=== PATIENT | male | born 1960 | race Caucasian/White ===

== ENCOUNTER 2017-02-25 13:07 | Inpatient (IN) | payer OTHER ==
--- NOTE | 2017-02-25 15:13 | PDOC ---
History of Present Illness - General Chief Complaint: Pain Stated Complaint: BACK AND LEG PAIN Time Seen by Provider: 02/25/17 14:42 History Source: Patient - History of Present Illness Timing/Duration: other Severity: severe Past History - Past Medical History Allergies/Adverse Reactions: Allergies Allergy/AdvReac Type Severity Reaction Status Date / Time No Known Allergies Allergy Verified 02/25/17 13:33 Home Medications: Ambulatory Orders Diclofenac Sodium/Misoprostol [Arthrotec EC 75 mg-200 Mcg Tab] 1 each PO BID # 20 tablet. 02/11/12 Docosahexanoic Acid/Epa [Fish Oil Softgel] 1 each PO DAILY 02/11/12 Tizanidine HCl 4 mg PO TID #10 capsule 02/11/12 Oxycodone HCl/Acetaminophen [Percocet 5-325 mg Tablet -] 1 tab PO HS PRN COPD: No Other medical history: NONE - Suicide/Smoking/Psychosocial Hx Smoking Status: No Smoking History: Never smoked Have you smoked in the past 12 months: No Number of Cigarettes Smoked Daily: 0 Hx Alcohol Use: No Drug/Substance Use Hx: No Review of Systems - Review of Systems Constitutional: No: Chills, Fever Musculoskeletal: Yes: Back Pain. No: Muscle Weakness Neurological: Yes: Numbness. No: Tingling *Physical Exam - Vital Signs Last Vital Signs Temp Pulse Resp BP Pulse Ox 97.8 F 105 H 20 155/93 97 02/25/17 13:28 02/25/17 13:28 02/25/17 13:28 02/25/17 13:28 02/25/17 13:28 - Physical Exam General Appearance: Yes: Appropriately Dressed. No: Apparent Distress HEENT: positive: Normal Voice Neck: positive: Supple Respiratory/Chest: negative: Respiratory Distress Musculoskeletal: negative: CVA Tenderness Extremity: positive: Normal Inspection Integumentary: positive: Dry, Warm Neurologic: positive: Fully Oriented, Alert, Normal Mood/Affect, Motor Strength /5 ED Treatment Course - LABORATORY CBC & Chemistry Diagram: 02/25/17 15:45 02/25/17 15:45 - RADIOLOGY Radiology Studies Ordered: Category Date Time Status CHEST X-RAY PORTABLE* [RAD] Stat Radiology 02/25/17 15:04 Ordered Medical Decision Making - Medical Decision Making 02/25/17 15:05 56 -year-old male history of multiple spinal fusions 2/2 job related injury (1 in 2008, 2 in 2014), performed by Dr. Gurmeet Torres of ortho spine, who was associated with [facility] at the time, now here with gradually progressive lower back pain radiating to both lower extremities, R>L, with intermittent numbness to left foot. No lower extremity weakness, saddle anesthesia or bowel or bladder incontinence. Patient states he had a CT myelogram performed a month ago that showed that the interbody fusion at L1-L2 had not consolidated. Patient also had a CT of his thoracic spine last week which showed "bilateral thoracolumbar facet arthropathy, right sided posterior endplate spondylolisthesis at the T10-T11, and the T11-T12 levels with mild age indeterminate compression deformity of the first lumbar vertebral body". Pt has report and discs on his person. Patient states Dr Torres is now affiliated with [facility] and sent patient to ED to be admitted for surgery tomorrow. Patient states he was told he is supposed to have a spinal fusion from T4-S1. Patient well-appearing and ambulatory with no evidence of cauda equina at this time. Will order preop labs and contact Dr. Torres to discuss plan 02/25/17 15:24 02/25/17 16:05 After an hr of paging Dr Torres ([phone]) no call back. Patient has a note on his person written and signed by a Dr Gurmeet Torres, stating that ER should admit patient to his service for the OR tomorrow. 02/25/17 17:41 At this time, still no call back from Dr. Torres despite multiple attempts at paging 02/25/17 17:40 *DC/Admit/Observation/Transfer Diagnosis at time of Disposition: Chronic lower back pain Qualifiers: Back pain laterality: bilateral Sciatica presence: unspecified whether sciatica present Qualified Code(s): M54.5 - Low back pain - Discharge Dispostion Condition at time of disposition: Fair Admit: Yes - Referrals Referrals: Jonas Maurice MD [Primary Care Provider] - - Patient Instructions - Post Discharge Activity
[2017-02-25 16:01] LABS: BASO % 0.9 % (0-2.0); EOS % 5.6 % (0-4.5); HEMATOCRIT 50.3 % (35.4-49); HEMOGLOBIN 16.7 GM/dL (11.7-16.9); LYMPH % 18.2 % (8-40); MCH 29.8 pg (25.7-33.7); MCHC 33.3 g/dl (32.0-35.9); MEAN CELL VOLUME 89.6 fl (80-96); MEAN PLT VOLUME 7.9 fl (7.5-11.1); NEUT % 66.3 % (42.8-82.8); PLATELET COUNT 253 K/MM3 (134-434); RBC 5.61 M/mm3 (4.00-5.60); RDW 13.1 % (11.9-15.9); WHITE BLOOD COUNT 7.2 K/mm3 (4.0-10.0)
[2017-02-25 16:14] LABS: ALBUMIN 3.8 g/dl (3.4-5.0); ALK PHOS 97 U/L (45-117); ANION GAP 7 (8-16); BILIRUBIN,TOTAL 0.7 mg/dL (0.2-1.0); BLOOD UREA NITROGEN 15 mg/dL (7-18); CALCIUM 9.3 mg/dL (8.5-10.1); CHLORIDE 103 mmol/L (98-107); CO2 30 mmol/L (21-32); CREATININE 1.1 mg/dL (0.7-1.3); GLUCOSE,RANDOM 84 mg/dL (74-106); POTASSIUM 4.3 mmol/L (3.5-5.1); SGOT/AST 20 U/L (15-37); SGPT/ALT 35 U/L (12-78); SODIUM 140 mmol/L (136-145)
[2017-02-25] MEDS ORDERED: morphine CARPU-JECT 4 MG/1 ML DISP.SYRIN IVPUSH ONE (16:44)
[2017-02-25] MEDS ORDERED: morphine SULFATE 4 MG/ML VIAL ONE (17:04)
[2017-02-25] MEDS: LACTATED RINGERS SOLUTION 1,000 ML IV SCH (17:30)
[2017-02-25 18:28] LABS: PROTHROMBIN TIME (PATIENT) 11.3 SEC (9.98-11.88)
[2017-02-25 19:45] LABS: URINE APPEARANCE CLEAR; URINE BILIRUBIN NEGATIVE (NEGATIVE); URINE BLOOD NEGATIVE (NEGATIVE); URINE COLOR YELLOW; URINE GLUCOSE (UA) NEGATIVE (NEGATIVE); URINE KETONE NEGATIVE (NEGATIVE); URINE LEUK ESTERASE NEGATIVE (NEGATIVE); URINE NITRITE NEGATIVE (NEGATIVE); URINE PROTEIN NEGATIVE (NEGATIVE); URINE UROBILINOGEN NEGATIVE mg/dL (0.2-1.0)
[2017-02-25] MEDS ORDERED: diazePAM 5 MG TABLET ONE (19:58)
--- NOTE | 2017-02-26 00:15 | PN ---
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 -Pre-op for first case Sunday AM (02/26/2017): Removal of lumbar spine hardware , inspection of fusion mass, possible revision decompression, and extension of posterior instrumented spinal fusion. -Admit to medicine/hospitalist service; f/u pre-op medical clearance/risk stratification. -NPO, IVF after 12AM 02/26/2017. -f/u pre-op labs & studies: CBC, Chemistry, PT, PTT, INR, Type & Screen, UA, CXR , EKG. -Will obtain surgical consent pre-op.
[2017-02-26] MEDS ORDERED: morphine CARPU-JECT 2 MG/1 ML DISP.SYRIN IVPUSH ONE (03:43)
[2017-02-26] MEDS ORDERED: morphine CARPU-JECT 10 MG/1 ML DISP.SYRIN ONE (03:47)
--- NOTE | 2017-02-26 04:01 | PDOC ---
*Physical Exam - Vital Signs Last Vital Signs Temp Pulse Resp BP Pulse Ox 97.5 F L 68 18 133/89 95 02/26/17 03:41 02/26/17 03:41 02/26/17 03:41 02/26/17 03:41 02/26/17 03:41 ED Treatment Course - LABORATORY CBC & Chemistry Diagram: 02/25/17 15:45 02/25/17 15:45 - ADDITIONAL ORDERS Additional order review: Laboratory Results 02/25/17 02/25/17 02/25/17 15:45 15:45 15:45 PT with INR 11.30 INR 1.00 Sodium 140 Potassium 4.3 Chloride 103 Carbon Dioxide 30 Anion Gap 7 L BUN 15 Creatinine 1.1 Creat Clearance w eGFR > 60 Random Glucose 84 Calcium 9.3 Total Bilirubin 0.7 AST 20 ALT 35 Alkaline Phosphatase 97 Total Protein 7.0 Albumin 3.8 Blood Type O NEGATIVE Antibody Screen Negative 02/25/17 15:45 RBC 5.61 H MCV 89.6 MCHC 33.3 RDW 13.1 MPV 7.9 Neutrophils % 66.3 Lymphocytes % 18.2 Monocytes % 9.0 Eosinophils % 5.6 H Basophils % 0.9 - Medications Given in the ED: ED Medications Discontinued Medications Generic Name Dose Route Start Last Admin Trade Name Freq PRN Reason Stop Dose Admin Morphine Sulfate 4 mg 02/25/17 16:44 02/25/17 16:52 Morphine Injection - IVPUSH 02/25/17 16:45 4 mg ONCE ONE Administration Morphine Sulfate 2 mg 02/26/17 03:43 02/26/17 03:53 Morphine Injection - IVPUSH 02/26/17 03:44 2 mg ONCE ONE Administration Medical Decision Making - Medical Decision Making 02/26/17 04:07 Pt erroneously admitted to the surgeon; I spoke to hospitalist who will admit the patient to an observation med surg bed. *DC/Admit/Observation/Transfer Diagnosis at time of Disposition: Chronic lower back pain Qualifiers: Back pain laterality: bilateral Sciatica presence: unspecified whether sciatica present Qualified Code(s): M54.5 - Low back pain - Discharge Dispostion Condition at time of disposition: Fair Admit: Yes - Referrals - Patient Instructions - Post Discharge Activity
--- NOTE | 2017-02-26 06:44 | HP ---
CHIEF COMPLAINT: Chronic back pain PCP: Dr Maurice HISTORY OF PRESENT ILLNESS: 56 year old male sent by Dr Torres to the ED for elective spinal fusion surgery . As per ED physician , Hospitalist service is consulted for preop clearance since patient is scheduled for surgery in AM Patient c/o chronic lower/ mid back pain , 08/19 , constant, exacerbated by movement . Recent Travel: NO PAST MEDICAL HISTORY: BPH DJD spine PAST SURGICAL HISTORY: L1 S1 fusion x 2 L3 S1 fusion R rotator cuff tear repair Social History: Smoking: quit many ears ago Alcohol: denies Drugs: denies Family History: Lung cancer both parents Allergies No Known Allergies Allergy (Verified 02/25/17 13:33) DENIES HOME MEDICATIONS: Home Medications Medication Instructions Recorded Diclofenac Sodium/Misoprostol 1 each PO BID #20 tablet. 02/11/12 [Arthrotec EC 75 mg-200 Mcg Tab] Docosahexanoic Acid/Epa [Fish Oil 1 each PO DAILY 02/11/12 Softgel] Tizanidine HCl 4 mg PO TID #10 capsule 02/11/12 Oxycodone HCl/Acetaminophen 1 tab PO HS PRN 08/25/13 [Percocet 5-325 mg Tablet -] Cialis Testosterone injections Flomax Finesteride REVIEW OF SYSTEMS CONSTITUTIONAL: Absent: fever, chills, diaphoresis, generalized weakness, malaise, loss of appetite, weight change HEENT: Absent: rhinorrhea, nasal congestion, throat pain, throat swelling, difficulty swallowing, mouth swelling, ear pain, eye pain, visual changes CARDIOVASCULAR: Absent: chest pain, syncope, palpitations, irregular heart rate, lightheadedness , peripheral edema RESPIRATORY: Absent: cough, shortness of breath, dyspnea with exertion, orthopnea, wheezing, stridor, hemoptysis GASTROINTESTINAL: Absent: abdominal pain, abdominal distension, nausea, vomiting, diarrhea, constipation, melena, hematochezia GENITOURINARY: Absent: dysuria, frequency, urgency, hesitancy, hematuria, flank pain, genital pain MUSCULOSKELETAL: as mentioned in HPI SKIN: Absent: rash, itching, pallor HEMATOLOGIC/IMMUNOLOGIC: Absent: easy bleeding, easy bruising, lymphadenopathy, frequent infections ENDOCRINE: Absent: unexplained weight gain, unexplained weight loss, heat intolerance, cold intolerance NEUROLOGIC: Absent: headache, focal weakness or paresthesias, dizziness, unsteady gait, seizure, mental status changes, bladder or bowel incontinence PSYCHIATRIC: Absent: anxiety, depression, suicidal or homicidal ideation, hallucinations. PHYSICAL EXAMINATION Vital Signs - 24 hr 02/25/17 02/25/17 02/26/17 13:28 17:45 03:41 Temperature 97.8 F 97.7 F 97.5 F L Pulse Rate 105 H Pulse Rate [ 78 68 Left Apical] Respiratory 20 18 18 Rate Blood Pressure 155/93 Blood Pressure 131/82 133/89 [Left Arm] O2 Sat by Pulse 97 96 95 Oximetry (%) GENERAL: Awake, alert, and fully oriented, in no acute distress. HEAD: Normal with no signs of trauma. EYES: Pupils equal, round and reactive to light, extraocular movements intact, sclera anicteric, conjunctiva clear. No lid lag. EARS, NOSE, THROAT: Ears normal, nares patent, oropharynx clear without exudates. Moist mucous membranes. NECK: Normal range of motion, supple without lymphadenopathy, JVD, or masses. LUNGS: Breath sounds equal, clear to auscultation bilaterally. No wheezes, and no crackles. No accessory muscle use. HEART: Regular rate and rhythm, normal S1 and S2 without murmur, rub or gallop. ABDOMEN: Soft, nontender, not distended, normoactive bowel sounds, no guarding, no rebound, no masses. No hepatomegaly or splenomegaly. MUSCULOSKELETAL: Normal range of motion at all joints. No bony deformities or tenderness. No CVA tenderness. UPPER EXTREMITIES: 2+ pulses, warm, well-perfused. No cyanosis. No clubbing. No peripheral edema. LOWER EXTREMITIES: 2+ pulses, warm, well-perfused. No calf tenderness. No peripheral edema. NEUROLOGICAL: Cranial nerves II-XII intact. Normal speech. Normal gait. PSYCHIATRIC: Cooperative. Good eye contact. Appropriate mood and affect. SKIN: Warm, dry, normal turgor, no rashes or lesions noted, normal capillary refill. Laboratory Results - last 24 hr 02/25/17 02/25/17 02/25/17 15:45 15:45 15:45 WBC 7.2 RBC 5.61 H Hgb 16.7 Hct 50.3 H MCV 89.6 MCH 29.8 MCHC 33.3 RDW 13.1 Plt Count 253 MPV 7.9 Neutrophils % 66.3 Lymphocytes % 18.2 Monocytes % 9.0 Eosinophils % 5.6 H Basophils % 0.9 PT with INR 11.30 INR 1.00 Sodium 140 Potassium 4.3 Chloride 103 Carbon Dioxide 30 Anion Gap 7 L BUN 15 Creatinine 1.1 Creat Clearance w eGFR > 60 Random Glucose 84 Calcium 9.3 Total Bilirubin 0.7 AST 20 ALT 35 Alkaline Phosphatase 97 Total Protein 7.0 Albumin 3.8 Urine Color Urine Appearance Urine pH Ur Specific Mclaughlin Urine Protein Urine Glucose (UA) Urine Ketones Urine Blood Urine Nitrite Urine Bilirubin Urine Urobilinogen Blood Type Antibody Screen 02/25/17 02/25/17 15:45 18:50 WBC RBC Hgb Hct MCV MCH MCHC RDW Plt Count MPV Neutrophils % Lymphocytes % Monocytes % Eosinophils % Basophils % PT with INR INR Sodium Potassium Chloride Carbon Dioxide Anion Gap BUN Creatinine Creat Clearance w eGFR Random Glucose Calcium Total Bilirubin AST ALT Alkaline Phosphatase Total Protein Albumin Urine Color Yellow Urine Appearance Clear Urine pH 5.0 Ur Specific Mclaughlin 1.019 Urine Protein Negative Urine Glucose (UA) Negative Urine Ketones Negative Urine Blood Negative Urine Nitrite Negative Urine Bilirubin Negative Urine Urobilinogen Negative Blood Type O NEGATIVE Antibody Screen Negative EKG - NSR , no acute ST/T changes CXR - NAPD ASSESSMENT/PLAN: 56 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 Medical clearance requested . Patient is medically optimized for planned procedure. Consider Observation postoperatively if needed for pain control. Soni PRN due to history of BPH Continue home medications upon discharge . DVT PPX with SCD Visit type - Emergency Visit Emergency Visit: Yes ED Registration Date: 02/25/17 Care time: The patient presented to the Emergency Department on the above date and was hospitalized for further evaluation of their emergent condition. - New Patient This patient is new to me today: Yes Date on this admission: 02/26/17 - Critical Care Critical Care patient: No
[2017-02-26] MEDS ORDERED: LACTATED RINGERS SOLUTION 1,000 ML IV SCH ×4 (06:45→17:37)
[2017-02-26] MEDS ORDERED: fentaNYL CITRATE 250 MCG/5 ML VIAL ONE ×4 (08:02→11:32)
[2017-02-26] MEDS ORDERED: LIDOCAINE HCL/PF 2% SDV 5ML VIAL ONE (08:02)
[2017-02-26] MEDS ORDERED: PROPOFOL 20 ML ONE ×17 (08:03→13:35)
[2017-02-26] MEDS ORDERED: MIDAZOLAM HCL 2 MG/2 ML SINGLE DOSE VIAL ONE ×5 (08:03)
[2017-02-26] MEDS ORDERED: SUCCINYLCHOLINE CHLORIDE 200 MG/10 ML VIAL ONE (08:03)
[2017-02-26] MEDS ORDERED: HEPARIN NA (PORCINE) 5,000 UNITS/ML 1ML VIAL ONE (08:14)
[2017-02-26] MEDS ORDERED: THROMBIN (BOVINE) 5,000 UNIT VIAL TP ONE (08:15)
[2017-02-26] MEDS ORDERED: BUPIVACAINE HCL/PF 0.5% (5MG/ML) 10 ML VIAL ONE (08:15)
[2017-02-26] MEDS ORDERED: SCOPOLAMINE HYDROBROMIDE 1 PATCH PATCH.TD72 ONE (08:17)
[2017-02-26] MEDS ORDERED: DEXAMETHASONE SOD PHOSPHATE 4 MG/1 ML VIAL ONE ×2 (08:55→12:18)
[2017-02-26] MEDS ORDERED: ceFAZolin SODIUM 1 GM VIAL ONE ×4 (08:55→19:40)
[2017-02-26] MEDS ORDERED: ONDANSETRON 4 MG/2 ML VIAL ONE ×2 (08:55→15:00)
[2017-02-26] MEDS ORDERED: VANCOMYCIN 1,000 MG VIAL (RESTRICTED TO ID ONLY) ONE ×2 (09:32→14:39)
[2017-02-26] MEDS ORDERED: ceFAZolin SODIUM 1 GM VIAL IVPB ONE (09:32)
[2017-02-26] MEDS ORDERED: VECURONIUM BROMIDE 10 MG VIAL ONE (09:32)
[2017-02-26] MEDS ORDERED: VANCOMYCIN 1,000 MG VIAL (RESTRICTED TO ID ONLY) IVPB ONE (09:32)
[2017-02-26] MEDS ORDERED: TRANEXAMIC ACID 1000 MG/10 ML VIAL ONE ×2 (09:35→10:24)
[2017-02-26] MEDS ORDERED: PROMETHAZINE HCL 25 MG/1 ML VIAL IVPUSH PRN ×2 (11:29→17:37)
[2017-02-26] MEDS ORDERED: HYDROmorphone HCL CARPU-JECT 1 MG/1 ML DISP.SYRIN IVPUSH PRN ×2 (11:29→17:37)
[2017-02-26] MEDS ORDERED: ONDANSETRON 4 MG/2 ML VIAL IVPUSH PRN ×4 (11:29→17:37)
[2017-02-26] MEDS ORDERED: HYDROmorphone *PCA* 10MG/50ML DISP.SYRIN PCA SCH (11:30)
[2017-02-26] MEDS ORDERED: ACETAMINOPHEN INJECTION 100 ML IVPB ONE (14:18)
--- NOTE | 2017-02-26 16:16 | OP ---
Operative Note - Note: Operative Date: 02/26/17 Pre-Operative Diagnosis: 1. Progressive lower extremity neurological decline. 2. Sagittal thoracolumbar decompensation Operation: 1. Removal of hardware L2-S1. 2. Laminectomy T12, L1. 3. Revision laminectomy L2. 4. Posterior instrumented spinal fusion T10-S1. 5. Iliac crest bone marrow harvest Post-Operative Diagnosis: Same as Pre-op Surgeon: Gurmeet Torres Temperer: Chalo Torres Anesthesia: General Specimens Removed: Old hardware Estimated Blood Loss (mls): 1,500 Drains & Tubes with Location: 1 x superficial Anatoliy drain (10F) Blood Volume Replaced (mls): 625 (cellsaver) Fluid Volume Replaced (mls): 3,000 Operative Report Dictated: Yes
--- NOTE | 2017-02-26 16:17 | PN ---
Progress Note (short form) - Note Progress Note: 56M s/p removal of hardware L2-S1, laminectomy T12 & L1, revision laminectomy L2 , posterior instrumented spinal fusion T10-S1 POD #0. -Admit to ICU post-op. -Admit to medical hospitalist service. -NPO until flatus. -IVF. -Pain control (Dilaudid or Morphine GYRO COMPASS TESTER + breakthrough PRN; Toradol 30mg IV q6h PRN x 4 MAX total doses). -Post-op abx (24 hrs total coverage). -Mechanical DVT PPx. only (LEVON's & SCD's). -Incentive spirometry/aggressive pulmonary toilet. -PT/OT/Rehab, OOB. -WBAT B/L LE. -No HOB restrictions. -Soni catheter (OK to d/c when patient is ambulatory). -Monitor drain output. -Will follow.
[2017-02-26] MEDS ORDERED: diazePAM CARPU-JECT 10 MG/2 ML DISP.SYRIN IVPUSH PRN ×2 (16:22→17:37)
[2017-02-26] MEDS ORDERED: KETOROLAC TROMETHAMINE 30 MG/1 ML VIAL IVPUSH PRN (16:22)
[2017-02-26] MEDS ORDERED: HYDROmorphone *PCA* 10MG/50ML DISP.SYRIN PCA ONE (16:42)
[2017-02-26] MEDS: HYDROmorphone *PCA* 10MG/50ML DISP.SYRIN PCA SCH (17:00)
[2017-02-26] MEDS: KETOROLAC TROMETHAMINE 30 MG/1 ML VIAL IVPUSH PRN (17:45)
[2017-02-26] MEDS ORDERED: HYDROmorphone HCL CARPU-JECT 2 MG/1 ML DISP.SYRIN ONE ×2 (17:56→23:08)
[2017-02-26] MEDS ORDERED: diazePAM 5 MG TABLET PO PRN (17:57)
[2017-02-26] MEDS ORDERED: diazePAM CARPU-JECT 10 MG/2 ML DISP.SYRIN IVPUSH ONE (17:57)
[2017-02-26] MEDS ORDERED: ACETAMINOPHEN 1000 MG/100 ML VIAL (NON FORMULARY) IVPB SCH (18:00)
[2017-02-26] MEDS ORDERED: ceFAZolin 2 GRAM PREMIX BAG IVPB SCH (18:00)
[2017-02-26] MEDS ORDERED: CHLORHEXIDINE GLUCONATE 4% CLEANSER FOR DECOLONIZATION TP SCH (22:00)
--- NOTE | 2017-02-26 22:01 | CONSULT ---
Consult Consult Specialty:: Pulmonary Critical care Reason for Consultation:: post/op observation - History of Present Illness History of Present Illness: 56 yo male with h/o multiple spinal fusions 2/2 job related injury presented with progressively worsening lower back thurman radiating to both lower extremities and elective surgery. Now s/p removal of hardware L2-S1, laminectomy T12 & L1, revision laminectomy L2, posterior instrumented spinal fusion T10-S1. Admitted to ICU for post op observation and management. Current Medications Acetaminophen (Ofirmev Injection -) 1,000 mg IVPB Q8H-IV [facility] Stop: 02/27/17 10:01 Chlorhexidine Gluconate (Hibiclens For Decolonization -) 1 applic TP HS [facility] Diazepam (Valium -) 5 mg PO Q8H PRN PRN Reason: BACK PAIN Hydromorphone HCl (Dilaudid Injection -) 1 mg IVPUSH [id number] PRN PRN Reason: PAIN Last Admin: 02/26/17 18:00 Dose: 1 mg Hydromorphone HCl (Dilaudid Urgent Care Physician Assistant -) 0 mg STRETCH MACHINE OPERATOR STRETCH MACHINE OPERATOR [facility] PRN Reason: Protocol Stop: 03/01/17 11:30 Last Admin: 02/26/17 17:00 Dose: 10 mg Cefazolin Sodium/Dextrose (Ancef 2 Gm Premixed Ivpb -) 2 gm in 50 mls @ 100 mls /hr IVPB Q8H-IV [facility] Stop: 02/27/17 10:29 Lactated Ringer's (Lactated Ringers Solution) 1,000 mls @ 125 mls/hr IV ASDIR [facility] Last Admin: 02/25/17 17:30 Dose: 125 mls/hr Ketorolac Tromethamine (Toradol Injection -) 30 mg IVPUSH Q6H PRN PRN Reason: PAIN Stop: 03/03/17 16:21 Last Admin: 02/26/17 17:45 Dose: 30 mg Mupirocin (Bactroban Ointment (For Decolonization) -) 1 applic NS BID [facility] Stop: 03/03/17 21:59 Ondansetron HCl (Zofran Injection) 4 mg IVPUSH Q6H PRN PRN Reason: NAUSEA AND/OR VOMITING Promethazine HCl (Phenergan Injection -) 12.5 mg IVPUSH Q6H PRN PRN Reason: NAUSEA-FOR RESCUE AFTER 15 MIN Stop: 02/27/17 11:28 - Alcohol/Substance Use Hx Alcohol Use: No - Smoking History Smoking history: Never smoked Have you smoked in the past 12 months: No Aproximately how many cigarettes per day: 0 Home Medications - Allergies Allergies/Adverse Reactions: Allergies Allergy/AdvReac Type Severity Reaction Status Date / Time No Known Allergies Allergy Verified 02/25/17 13:33 - Home Medications Home Medications: Ambulatory Orders Diclofenac Sodium/Misoprostol [Arthrotec EC 75 mg-200 Mcg Tab] 1 each PO BID # 20 tablet. 02/11/12 Docosahexanoic Acid/Epa [Fish Oil Softgel] 1 each PO DAILY 02/11/12 Tizanidine HCl 4 mg PO TID #10 capsule 02/11/12 Oxycodone HCl/Acetaminophen [Percocet 5-325 mg Tablet -] 1 tab PO HS PRN Physical Exam Vital Signs: Vital Signs Temperature 97.8 F 02/26/17 20:15 Pulse Rate 98 H 02/26/17 20:15 Respiratory Rate 18 02/26/17 20:15 Blood Pressure 149/78 02/26/17 20:15 O2 Sat by Pulse Oximetry (%) 96 02/26/17 20:15 Constitutional: Yes: Well Nourished, No Distress Eyes: Yes: WNL Cardiovascular: Yes: Regular Rate and Rhythm Respiratory: Yes: CTA Bilaterally Gastrointestinal: Yes: Soft, Hypoactive Bowel Sounds Musculoskeletal: Yes: Other (able to move all four ext) Edema: No Peripheral Pulses WNL: Yes Labs: CBC, BMP 02/25/17 15:45 02/25/17 15:45 Assessment/Plan POD #0 s/p removal of hardware L2-S1, laminectomy T12 & L1, revision laminectomy L2, posterior instrumented spinal fusion T10-S1 -pain management -antiemetics prn -NPO -fluids while NPO -monitor drain output -abx given in OR -IS -MIKEY David Critical care time: 35 min
[2017-02-26] MEDS: CEFAZOLIN 2 GM/D5W 2 GM/50 ML ML IVPB SCH (22:16)
[2017-02-26] MEDS: ACETAMINOPHEN 1000 MG/100 ML VIAL (NON FORMULARY) IVPB SCH (22:16)
[2017-02-26] MEDS ORDERED: HYDROmorphone HCL CARPU-JECT 2 MG/1 ML DISP.SYRIN IVPUSH PRN ×2 (22:35→22:36)
--- NOTE | 2017-02-27 01:33 | EKG ---
Test Reason : Blood Pressure : / mmHG Vent. Rate : 071 BPM Atrial Rate : 071 BPM P-R Int : 138 ms QRS Dur : 094 ms QT Int : 352 ms P-R-T Axes : 058 040 018 degrees QTc Int : 382 ms NORMAL SINUS RHYTHM NORMAL ECG NO PREVIOUS ECGS AVAILABLE Confirmed by LINDEN DESOUZA MD ([id number]) on 02/27/2017 1:32:59 AM Referred By: Confirmed By:LINDEN DESOUZA MD
[2017-02-27] MEDS: MUPIROCIN 2% TOPICAL OINTMENT FOR DECOLONIZATION NS SCH ×2 (01:34→09:47)
[2017-02-27] MEDS: ACETAMINOPHEN 1000 MG/100 ML VIAL (NON FORMULARY) IVPB SCH ×2 (01:34→09:48)
[2017-02-27] MEDS: CEFAZOLIN 2 GM/D5W 2 GM/50 ML ML IVPB SCH ×2 (02:07→09:46)
[2017-02-27] MEDS ORDERED: HYDROmorphone *PCA* 10MG/50ML DISP.SYRIN PCA ONE ×3 (02:42→19:26)
[2017-02-27] MEDS: HYDROmorphone *PCA* 10MG/50ML DISP.SYRIN PCA SCH ×4 (02:47→22:16)
[2017-02-27] MEDS: KETOROLAC TROMETHAMINE 30 MG/1 ML VIAL IVPUSH PRN (03:42)
[2017-02-27 07:19] LABS: HEMATOCRIT 40.3 % (35.4-49); HEMOGLOBIN 13.5 GM/dL (11.7-16.9); MCH 29.9 pg (25.7-33.7); MCHC 33.6 g/dl (32.0-35.9); MEAN CELL VOLUME 88.8 fl (80-96); MEAN PLT VOLUME 7.7 fl (7.5-11.1); PLATELET COUNT 236 K/MM3 (134-434); RBC 4.54 M/mm3 (4.00-5.60); WHITE BLOOD COUNT 14.7 K/mm3 (4.0-10.0)
[2017-02-27 07:51] LABS: ANION GAP 7 (8-16); BLOOD UREA NITROGEN 19 mg/dL (7-18); CALCIUM 7.9 mg/dL (8.5-10.1); CHLORIDE 104 mmol/L (98-107); CO2 28 mmol/L (21-32); GLUCOSE,RANDOM 99 mg/dL (74-106); POTASSIUM 4.2 mmol/L (3.5-5.1); SODIUM 139 mmol/L (136-145)
--- NOTE | 2017-02-27 08:09 | PN ---
Physical Exam: SUBJECTIVE: Patient seen and examined in the ICU. States he has pain 10/10, but has not yet pushed the TEA TREE FARMER. Once he pressed the TEA TREE FARMER, he expressed relief of his pain. OBJECTIVE: Pt is receiving Dilaudid 0.5mg q10 TEA TREE FARMER, encouraged pt to use same + flatus, + bowel sounds, non distended abdomen, full liquid for breakfast, then regular if tolerates Denies nausea or vomiting Appears comfortable Encouraged to get OOB to chair once pain is controlled Vital Signs Period Temp Pulse Resp BP Sys/Cortez Pulse Ox Last 24 Hr 97.7 F-98.6 F 74-122 10-22 107-161/61-102 92-99 GENERAL: The patient is awake, alert, and fully oriented, in no acute distress. HEAD: Normal with no signs of trauma. EYES: PERRL, extraocular movements intact, sclera anicteric, conjunctiva clear. No ptosis. ENT: Ears normal, nares patent, oropharynx clear without exudates, moist mucous membranes. NECK: Trachea midline, full range of motion, supple. LUNGS: clear lung sounds anteriorly, no wheezing HEART: Regular rate and rhythm, S1, S2 without murmur, rub or gallop. ABDOMEN: Soft, nontender, nondistended, normoactive bowel sounds, + passing gas EXTREMITIES: no edema. NEUROLOGICAL: Normal speech, gait not observed. PSYCH: Normal mood, normal affect. SKIN: Warm, dry, normal turgor, no rashes or lesions noted Laboratory Results - last 24 hr 02/25/17 02/27/17 18:50 06:00 WBC 14.7 H D RBC 4.54 Hgb 13.5 D Hct 40.3 D MCV 88.8 MCH 29.9 MCHC 33.6 RDW 13.0 Plt Count 236 MPV 7.7 Ur Leukocyte Esterase Negative Active Medications Generic Name Dose Route Start Last Admin Trade Name Freq PRN Reason Stop Dose Admin Acetaminophen 1,000 mg 02/26/17 18:00 02/27/17 01:34 Ofirmev Injection - IVPB 02/27/17 10:01 1,000 mg Q8H-IV [facility] Administration Chlorhexidine Gluconate 1 applic 02/26/17 22:00 02/27/17 02:50 Hibiclens For Decolonization - TP 1 applic HS [facility] Administration Diazepam 5 mg 02/26/17 17:57 Valium - PO Q8H PRN BACK PAIN Hydromorphone HCl 0 mg 02/26/17 17:37 02/27/17 02:47 Dilaudid Antisqueak Chalker - TEA TREE FARMER 03/01/17 11:30 10 mg TEA TREE FARMER LEAH Administration Protocol Hydromorphone HCl 1 mg 02/26/17 22:35 02/26/17 23:16 Dilaudid Injection - IVPUSH 1 mg [id number] PRN Administration PAIN Hydromorphone HCl 1 mg 02/26/17 22:36 Dilaudid Injection - IVPUSH 02/27/17 22:35 Q4H PRN PAIN Cefazolin Sodium/Dextrose 2 gm in 50 mls @ 100 mls/hr 02/26/17 18:00 02:07 Ancef 2 Gm Premixed Ivpb - IVPB 02/27/17 10:29 100 mls/hr Q8H-IV [facility] Administration Lactated Ringer's 1,000 mls @ 125 mls/hr 02/26/17 17:37 02/25/17 17:30 Lactated Ringers Solution IV 125 mls/hr ASDIR [facility] Administration Ketorolac Tromethamine 30 mg 02/26/17 17:37 02/27/17 03:42 Toradol Injection - IVPUSH 03/03/17 16:21 30 mg Q6H PRN Administration PAIN Mupirocin 1 applic 02/26/17 22:00 02/27/17 01:34 Bactroban Ointment (For Decolonization) - NS 03/03/17 21:59 1 applic BID [facility] Administration Ondansetron HCl 4 mg 02/26/17 17:37 Zofran Injection IVPUSH Q6H PRN NAUSEA AND/OR VOMITING Promethazine HCl 12.5 mg 02/26/17 17:37 Phenergan Injection - IVPUSH 02/27/17 11:28 Q6H PRN NAUSEA-FOR RESCUE AFTER 15 MIN ASSESSMENT/PLAN: Patient is a 56 year old male who has a past medical history of BPH and progressive back pain to bilateral lower extremities. He is s/p elective surgery on 02/26/2017 s/p removal of hardware L2-S1, laminectomy T12 & L1, revision laminectomy L2, posterior instrumented spinal fusion T10-S1. Post OP Day #1, in ICU post op. Skeletal S/p elective back surgery on 02/26/19 In ICU post Op + flatus, started on full liquid diet, advance to regular if tolerates Continue IVF until tolerating diet Pain controlled with TEA TREE FARMER dilaudid, pt encouraged to use, Toradol prn Encourage ambulation when pain is controlled Soni to be discontinued when fully ambulatory Hematology: Leukocytosis @. 14.7 Afebrile, vitals stable No signs of infection On Ancef 2gm post op F.E.N. Fluids: LR @ 125cc/hr Electrolytes: within normal limits Nutrition: full liquids, advance to regular Prophylaxis: DVT:SCDs Disposition: full code. Visit type - Emergency Visit Emergency Visit: Yes ED Registration Date: 02/25/17 Care time: The patient presented to the Emergency Department on the above date and was hospitalized for further evaluation of their emergent condition. - New Patient This patient is new to me today: Yes Date on this admission: 02/27/17 - Critical Care Critical Care patient: Yes Total Critical Care Time (in minutes): 45 Critical Care Statement: The care of this patient involved high complexity decision making to prevent further life threatening deterioration of the patient 's condition and/or to evaluate & treat vital organ system(s) failure or risk of failure.
--- NOTE | 2017-02-27 08:44 | OP ---
DATE OF OPERATION: 02/26/2017 SURGEON: Gurmeet Torres MD VICE PRESIDENT COMPLIANCE: Chalo Torres MD PREOPERATIVE DIAGNOSES: Thoracolumbar stenosis with myelopathy and radiculopathy and associated increasing kyphosis and segmental instability. POSTOPERATIVE DIAGNOSES: Thoracolumbar stenosis with myelopathy and radiculopathy and associated increasing kyphosis and segmental instability. OPERATION PERFORMED: 1. Removal of hardware. 2. Inspection of fusion mass. 3. Laminectomy, T12, L1, L2 with associated undercutting facetectomy. 4. Madden-Faustin osteotomy, L1-2. 5. Pedicle screw instrumentation, T10 to S1. 6. Posterolateral arthrodesis, T10 to S1. 7. Autologous bone grafting and bone mineral aspirate concentrate. 8. Complex wound closure, 30 cm. 9. Use of biplane fluoroscopy and intraoperative neuromonitoring. ANTIBIOTICS GIVEN: Kefzol 2 g, vancomycin 1 g preoperative; Kefzol 1 g given at the time of the instrumentation. Copious washout throughout the procedure. OPERATION DETAILS: With the patient brought to the operating room, timeout was called. Imaging was available for intraoperative evaluation. The patient was placed prone on 2 gel rolls. All relevant bony prominences were padded. Eyes were attended to by the anesthesia team. Patient was catheterized. The skin was prepped with Betadine scrub, washed off with alcohol, DuraPrep applied, and a window drape applied. With the patient in this position, an incision was made through the old, original incision extended proximally. The dissection was taken down through the fascia. The first cranial spinous process that was readily palpable was dissected first for attention to appropriate depth and level. The dissection was then taken obliquely through the soft tissue out to the original hardware which was present from L2 down to S1. The hardware was appropriately removed after complete freeing of the hardware of fibrous and bony elements. Once all hardware was removed, new hardware was replaced in situ with a different instrumentation system (from DePuy to Precision). A laminectomy at T12 was performed. This was virgin tissue, had not been operated on prior to this. Once the dura was exposed at this level, the dura was traced distally right down to the level of L1-L2, in fact, beyond the level of the pedicles of L2. We used Kerrison upcuts, Leksell rongeurs, as well as osteotomes to implode the lateral surface of the vertebral canal inwards and deliver bone outwards, keeping intact the principle of operating in an operated field with scarring from virgin tissue to the operated scar tissue. This facilitated complete freeing of the dura with a wide decompression being performed and no dural injury at all. Once this had been performed, we extended the dissection laterally to complete a Madden-Faustin osteotomy at L1-L2. The pedicles of T10 to the remaining part of the spine were identified using anatomical guidelines combined with lateral fluoroscopic x-ray which facilitated screw placement in as firm a bone bed as possible; that is, under the endplates. Screws were tested and found to be completely safe within the parameters of neuromonitoring features. The lowest was the T11 screw on the right which measured 9 mA. X-rays revealed excellent positioning of all screws. The rods were appropriately contoured and then fixed into position with the appropriate instrumentation for persuasion of the instrumentation as the proximal ends of the rods were left straight to facilitate encouragement of extension of the spine in keeping with the modular elasticity of the titanium material. Two crosslinks applied. Solid fixation achieved. The bone grafting was completed by placing a posterolateral arthrodesis into the bone bed intersected previously, which was a dissection right down to the tips of the spinous processes in the lumbar spine and laterally out to the tip of the spinous processes in the thoracic spine. The wounds were thoroughly lavaged throughout the procedure. The retractors were released readily every 15 minutes. At the time of closure, necrotic damaged muscle proximally was removed. This was a small amount of muscle. The wounds were closed in a complex wound closure manner with fat and muscle 1 Vicryl, fascia 1 Vicryl, subcutaneous 1 and 2-0 Vicryl, and then the skin with 3-0 Monocryl. DRAINAGE: Superficial 10-Turkish Anatoliy drain utilized. Vancomycin was placed in the subfascial soft tissue prior to closure. OVERALL COMMENT: Operation was difficult, i.e. the dural element of the dissection, the election of T10 to S1 was assessed as sufficing to maintain this gentleman's vertical sagittal axis. He is a young man, and we elected to retain mobility of his remaining proximal spinal elements. Albeit, it is readily noted that he has elements of diffuse idiopathic skeletal hypoplasia which is causing a bony ankyloses picture in his thoracic spine as it is. The fusion was taken right up to this level. No complications, operation went well. MD ASHWIN Lozoya/[id number]
[2017-02-27] MEDS ORDERED: diphenhydrAMINE HCL 25 MG CAPSULE (FP) PO ONE (10:33)
[2017-02-27] MEDS ORDERED: oxyCODONE HCL 5 MG TABLET PO PRN (12:49)
--- NOTE | 2017-02-27 13:29 | PN ---
Teaching Attending Note Name of Resident: Jude Thompson ATTENDING PHYSICIAN STATEMENT I saw and evaluated the patient. I reviewed the resident's note and discussed the case with the resident. I agree with the resident's findings and plan as documented. SUBJECTIVE: Pt seen and examined in the ICU. States pain not controlled with CIRCUIT DESIGN ENGINEER. No shortness of breath or chest pain. No fevers or chills. OBJECTIVE: Last Vital Signs Temp Pulse Resp BP Pulse Ox 98.2 F 104 H 18 112/58 96 02/27/17 10:00 02/27/17 12:02 02/27/17 12:02 02/27/17 12:02 02/26/17 21:00 Intake & Output 02/24/17 02/25/17 02/26/17 02/27/17 23:59 23:59 23:59 23:59 Intake Total 4225 Output Total 3030 50 Balance 1195 -50 Weight 200 lb 211 lb 1 oz Gen: NAD at rest Heart: tachycardic, regular Lung: decreased breath sounds at the bases Abd: soft, nontender Ext: no edema Back: +drain with serosanguinous drainage CBC, BMP 02/27/17 06:00 02/27/17 06:00 Active Medications Chlorhexidine Gluconate (Hibiclens For Decolonization -) 1 applic TP HS LEAH Last Admin: 02/27/17 02:50 Dose: 1 applic Diazepam (Valium -) 5 mg PO Q8H PRN PRN Reason: BACK PAIN Hydromorphone HCl (Dilaudid Animal Caregiver -) 0 mg CIRCUIT DESIGN ENGINEER CIRCUIT DESIGN ENGINEER LEAH PRN Reason: Protocol Stop: 03/01/17 11:30 Last Admin: 02/27/17 08:45 Dose: 0.5 mg Hydromorphone HCl (Dilaudid Injection -) 1 mg IVPUSH [id number] PRN PRN Reason: PAIN Last Admin: 02/26/17 23:16 Dose: 1 mg Hydromorphone HCl (Dilaudid Injection -) 1 mg IVPUSH Q4H PRN PRN Reason: PAIN Stop: 02/27/17 22:35 Lactated Ringer's (Lactated Ringers Solution) 1,000 mls @ 125 mls/hr IV ASDIR LEAH Last Admin: 02/25/17 17:30 Dose: 125 mls/hr Ketorolac Tromethamine (Toradol Injection -) 30 mg IVPUSH Q6H PRN PRN Reason: PAIN Stop: 03/03/17 16:21 Last Admin: 02/27/17 03:42 Dose: 30 mg Mupirocin (Bactroban Ointment (For Decolonization) -) 1 applic NS BID LEAH Stop: 03/03/17 21:59 Last Admin: 02/27/17 09:47 Dose: 1 applic Ondansetron HCl (Zofran Injection) 4 mg IVPUSH Q6H PRN PRN Reason: NAUSEA AND/OR VOMITING Oxycodone HCl (Roxicodone -) 5 mg PO Q4H PRN PRN Reason: PAIN Last Admin: 02/27/17 13:17 Dose: 5 mg ASSESSMENT AND PLAN: Intractable Back Pain s/p Laminectomy T12-L1/Revision Laminectomy L2/Removal of Hardware L2-S1/ Posterior Spinal Fusion T10-S1 - pain control, will add PO regimen - incentive spirometry - monitor H/H - monitor drain output - DVT prophylaxis - OOB, rehab, transfer to [facility] when ok with surgery
--- NOTE | 2017-02-27 14:25 | PN ---
Physical Exam: SUBJECTIVE: Patient seen and examined POD#1 s/p thoracic/lumbar spinal fusion. Overnight, patient complaining of pain. Patient admitted for post op management. OBJECTIVE: Vital Signs Period Temp Pulse Resp BP Sys/Cortez Pulse Ox Last 24 Hr 97.7 F-98.6 F 74-122 10-22 107-161/58-102 92-99 GENERAL: The patient is awake, alert, and fully oriented, in no acute distress. HEAD: Normal with no signs of trauma. LUNGS:Decreased breath sounds at base, clear to auscultation bilaterally, no wheezes, no crackles, no accessory muscle use. HEART: Tachycardic, S1, S2 without murmur, rub or gallop. ABDOMEN: Soft, nontender, nondistended, normoactive bowel sounds, no guarding, no rebound, no hepatosplenomegaly, no masses. EXTREMITIES: 2+ pulses, warm, well-perfused, no edema. NEUROLOGICAL: Neurologically intact. Gait not observed. Normal speech. Movement in lower extremities. pulse intact. PSYCH: Normal mood, normal affect. Laboratory Results - last 24 hr 02/27/17 02/27/17 06:00 06:00 WBC 14.7 H D RBC 4.54 Hgb 13.5 D Hct 40.3 D MCV 88.8 MCH 29.9 MCHC 33.6 RDW 13.0 Plt Count 236 MPV 7.7 Sodium 139 Potassium 4.2 Chloride 104 Carbon Dioxide 28 Anion Gap 7 L BUN 19 H D Creatinine 1.0 Random Glucose 99 Calcium 7.9 L Active Medications Generic Name Dose Route Start Last Admin Trade Name Freq PRN Reason Stop Dose Admin Chlorhexidine Gluconate 1 applic 02/26/17 22:00 02/27/17 02:50 Hibiclens For Decolonization - TP 1 applic HS LEAH Administration Diazepam 5 mg 02/26/17 17:57 Valium - PO Q8H PRN BACK PAIN Hydromorphone HCl 0 mg 02/26/17 17:37 02/27/17 08:45 Dilaudid Offc Spec - RADAR SCIENTIST 03/01/17 11:30 0.5 mg RADAR SCIENTIST LEAH Administration Protocol Hydromorphone HCl 1 mg 02/26/17 22:35 02/26/17 23:16 Dilaudid Injection - IVPUSH 1 mg [id number] PRN Administration PAIN Hydromorphone HCl 1 mg 02/26/17 22:36 Dilaudid Injection - IVPUSH 02/27/17 22:35 Q4H PRN PAIN Lactated Ringer's 1,000 mls @ 125 mls/hr 02/26/17 17:37 02/25/17 17:30 Lactated Ringers Solution IV 125 mls/hr ASDIR LEAH Administration Ketorolac Tromethamine 30 mg 02/26/17 17:37 02/27/17 03:42 Toradol Injection - IVPUSH 03/03/17 16:21 30 mg Q6H PRN Administration PAIN Mupirocin 1 applic 02/26/17 22:00 02/27/17 09:47 Bactroban Ointment (For Decolonization) - NS 03/03/17 21:59 1 applic BID LEAH Administration Ondansetron HCl 4 mg 02/26/17 17:37 Zofran Injection IVPUSH Q6H PRN NAUSEA AND/OR VOMITING Oxycodone HCl 5 mg 02/27/17 12:49 02/27/17 13:17 Roxicodone - PO 5 mg Q4H PRN Administration PAIN ASSESSMENT/PLAN: 56 year old M with pmh of lumbar surgeries s/p Laminectomy T12-L1/Revision Laminectomy L2/Removal of Hardware L2-S1/Posterior Spinal Fusion T10-S1 admitted for post op management. Neuro s/p Laminectomy T12-L1/Revision Laminectomy L2/Removal of Hardware L2-S1/ Posterior Spinal Fusion T10-S1 Pain control with dilaudid RADAR SCIENTIST as well as PO control with oxycodone Incentive spirometery Monitor drain output Monitor H/H post procedure FEN/GI -No fluids -WNL -Full liquid diet, advance as tolerated PPx SCDs and Teds for dvt ppx Dispo: Patient to be transferred to [facility]-surg Visit type - Emergency Visit Emergency Visit: Yes ED Registration Date: 02/25/17 Care time: The patient presented to the Emergency Department on the above date and was hospitalized for further evaluation of their emergent condition. - New Patient This patient is new to me today: Yes Date on this admission: 02/27/17 - Critical Care Critical Care patient: Yes Total Critical Care Time (in minutes): 35 Critical Care Statement: The care of this patient involved high complexity decision making to prevent further life threatening deterioration of the patient 's condition and/or to evaluate & treat vital organ system(s) failure or risk of failure.
--- NOTE | 2017-02-27 14:38 | PN ---
Progress Note (short form) - Note Progress Note: POD #1 - s/p thoracolumbar fusion under GA with dilaudid REAL ESTATE INVESTMENT ANALYST for postop pain management. VSS. Pt. doing well, resting comfortably in bed. Good pain control. No apparent anesthetic complications noted. Will continue REAL ESTATE INVESTMENT ANALYST for now. Continue current care.
[2017-02-27] MEDS ORDERED: DEXAMETHASONE SOD PHOSPHATE 10 MG/1 ML VIAL IVPUSH ONE (16:59)
--- NOTE | 2017-02-27 17:44 | PN ---
Progress Note (short form) - Note Progress Note: 56M s/p removal of hardware L2-S1, laminectomy T12 & L1, revision laminectomy L2 , posterior instrumented spinal fusion T10-S1 POD #1. Pain well controlled. Pt. reports B/L anterior thigh pain c/w neuropathic re- activation phenomenon. No acute events overnight. Pt. denies overnight history of headaches/chest pain/shortness of breath/nausea/ vomiting/chills/sweats. (+) Bustos bustos; (-) Flatus; (-) BM. (+) Walked in hallway. All labs & vitals reviewed. PE: AAO x 3, NAD. Spine: Dressing C/D/I. Anatoliy drain C/D/I; output: 50cc/shift. B/L LE sensorimotor exam: at baseline. 56M s/p removal of hardware L2-S1, laminectomy T12 & L1, revision laminectomy L2 , posterior instrumented spinal fusion T10-S1 POD #1. -Advance diet as tolerated. -D/C bustos catheter. -OK to downgrade from ICU to SDU/telemetry. -Pain control (Dilaudid or Morphine TANKER SERVICE ATTENDANT + breakthrough PRN; Toradol 30mg IV q6h PRN x 4 MAX total doses). -Mechanical DVT PPx. only (LEVON's & SCD's). -Incentive spirometry/aggressive pulmonary toilet. -PT/OT/Rehab, OOB. -WBAT B/L LE. -No HOB restrictions. -Monitor drain output. -Will follow. -Discharge planning.
[2017-02-27] MEDS ORDERED: DEXAMETHASONE SOD PHOSPHATE 10 MG/1 ML VIAL ONE (19:02)
[2017-02-27] MEDS: LACTATED RINGERS SOLUTION 1,000 ML IV SCH (19:03)
[2017-02-27 20:24] VITALS: BMI 27.5
[2017-02-27] MEDS ORDERED: HYDROmorphone HCL CARPU-JECT 2 MG/1 ML DISP.SYRIN IVPUSH PRN (21:50)
[2017-02-27] MEDS ORDERED: CHLORHEXIDINE GLUCONATE 4% CLEANSER FOR DECOLONIZATION TP SCH (22:00)
[2017-02-27] MEDS ORDERED: MUPIROCIN 2% TOPICAL OINTMENT FOR DECOLONIZATION NS SCH (22:00)
[2017-02-27] MEDS: oxyCODONE HCL 5 MG TABLET PO PRN (22:26)
[2017-02-27] MEDS: diazePAM 5 MG TABLET PO PRN (22:27)
[2017-02-27] MEDS: ONDANSETRON 4 MG/2 ML VIAL IVPUSH PRN (22:27)
[2017-02-28] MEDS: HYDROmorphone *PCA* 10MG/50ML DISP.SYRIN PCA SCH ×2 (02:18→15:34)
[2017-02-28 07:34] LABS: BASO % 0.1 % (0-2.0); HEMATOCRIT 38.1 % (35.4-49); HEMOGLOBIN 12.8 GM/dL (11.7-16.9); LYMPH % 6.2 % (8-40); MCH 29.5 pg (25.7-33.7); MCHC 33.5 g/dl (32.0-35.9); MEAN CELL VOLUME 88.1 fl (80-96); MEAN PLT VOLUME 7.7 fl (7.5-11.1); MONO % 7.1 % (3.8-10.2); NEUT % 86.6 % (42.8-82.8); PLATELET COUNT 220 K/MM3 (134-434); RBC 4.32 M/mm3 (4.00-5.60); RDW 12.7 % (11.9-15.9); WHITE BLOOD COUNT 11.9 K/mm3 (4.0-10.0)
[2017-02-28 07:50] LABS: INR 1.12 (0.82-1.09); PROTHROMBIN TIME (PATIENT) 12.6 SEC (9.98-11.88)
[2017-02-28 08:05] LABS: ALBUMIN 3.1 g/dl (3.4-5.0); ANION GAP 7 (8-16); BLOOD UREA NITROGEN 16 mg/dL (7-18); CALCIUM 8.2 mg/dL (8.5-10.1); CHLORIDE 100 mmol/L (98-107); CO2 31 mmol/L (21-32); GLUCOSE,RANDOM 103 mg/dL (74-106); POTASSIUM 4.1 mmol/L (3.5-5.1); SODIUM 138 mmol/L (136-145)
[2017-02-28 08:09] LABS: ALK PHOS 69 U/L (45-117); BILIRUBIN,TOTAL 1.2 mg/dL (0.2-1.0); CREATININE 0.8 mg/dL (0.7-1.3); PHOSPHOROUS 3.2 mg/dL (2.5-4.9); SGOT/AST 42 U/L (15-37); SGPT/ALT 27 U/L (12-78); TOT PROT 5.8 g/dl (6.4-8.2)
[2017-02-28] MEDS ORDERED: DEXAMETHASONE SOD PHOSPHATE 10 MG/1 ML VIAL IVPUSH ONE (10:00)
[2017-02-28] MEDS ORDERED: DEXAMETHASONE SOD PHOSPHATE 4 MG/1 ML VIAL IVPUSH ONE (10:00)
[2017-02-28] MEDS: oxyCODONE HCL 5 MG TABLET PO PRN ×2 (10:04→23:28)
[2017-02-28] MEDS ORDERED: chlorproMAZINE HCL 25 MG TABLET PO ONE (13:08)
[2017-02-28] MEDS: POLYETHYLENE GLYCOL 3350 119 GM BTL PO SCH (13:29)
--- NOTE | 2017-02-28 15:33 | PN ---
Progress Note (short form) - Note Progress Note: Subjective: The patient was seen and examined at the bedside, he has complaints of hiccups. He states he is feeling better and does not want to use the GRAIN BROKER AND MARKET OPERATOR anymore. Current Medications Generic Name Dose Route Start Last Admin Trade Name Freq PRN Reason Stop Dose Admin Diazepam 5 mg 02/27/17 21:50 02/27/17 22:27 Valium - PO 5 mg Q8H PRN Administration BACK PAIN Hydromorphone HCl 10 mg 02/27/17 21:50 02/28/17 02:18 Dilaudid Digital X Ray Service Engineer - GRAIN BROKER AND MARKET OPERATOR 03/01/17 11:30 10 mg GRAIN BROKER AND MARKET OPERATOR LEAH Administration Protocol Ondansetron HCl 4 mg 02/27/17 21:50 02/27/17 22:27 Zofran Injection IVPUSH 4 mg Q6H PRN Administration NAUSEA AND/OR VOMITING Oxycodone HCl 5 mg 02/27/17 21:50 02/28/17 10:04 Roxicodone - PO 5 mg Q4H PRN Administration PAIN Polyethylene Glycol 17 gm 02/28/17 13:15 02/28/17 13:29 Miralax (For Daily Use) - PO 17 gm DAILY LEAH Administration Objective: Vital Signs Period Temp Pulse Resp BP Sys/Cortez Pulse Ox Last 24 Hr 98.1 F-98.8 F 85-103 18-20 128-150/64-95 94 Physical Exam: General: NAD, A&Ox3 Lungs: CTA bilaterally Heart: RRR, S1S2 Ext: Warm, well-perfused. 2+ DP/PT bilaterally CBCD WBC 11.9 K/mm3 (4.0-10.0) H 02/28/17 07:15 RBC 4.32 M/mm3 (4.00-5.60) 02/28/17 07:15 Hgb 12.8 GM/dL (11.7-16.9) 02/28/17 07:15 Hct 38.1 % (35.4-49) 02/28/17 07:15 MCV 88.1 fl (80-96) 02/28/17 07:15 MCHC 33.5 g/dl (32.0-35.9) 02/28/17 07:15 RDW 12.7 % (11.9-15.9) 02/28/17 07:15 Plt Count 220 K/MM3 (134-434) 02/28/17 07:15 MPV 7.7 fl (7.5-11.1) 02/28/17 07:15 CMP Sodium 138 mmol/L (136-145) 02/28/17 07:15 Potassium 4.1 mmol/L (3.5-5.1) 02/28/17 07:15 Chloride 100 mmol/L (98-107) 02/28/17 07:15 Carbon Dioxide 31 mmol/L (21-32) 02/28/17 07:15 Anion Gap 7 (8-16) L 02/28/17 07:15 BUN 16 mg/dL (7-18) 02/28/17 07:15 Creatinine 0.8 mg/dL (0.7-1.3) 02/28/17 07:15 Creat Clearance w eGFR > 60 (>60) 02/28/17 07:15 Random Glucose 103 mg/dL (74-106) 02/28/17 07:15 Calcium 8.2 mg/dL (8.5-10.1) L 02/28/17 07:15 Total Bilirubin 1.2 mg/dL (0.2-1.0) H D 02/28/17 07:15 AST 42 U/L (15-37) H D 02/28/17 07:15 ALT 27 U/L (12-78) D 02/28/17 07:15 Alkaline Phosphatase 69 U/L (45-117) D 02/28/17 07:15 Total Protein 5.8 g/dl (6.4-8.2) L 02/28/17 07:15 Albumin 3.1 g/dl (3.4-5.0) L 02/28/17 07:15 Assessment: This is a 56 year old male with PMHx of BPH, progressive back pain who presented with elective back surgery on 02/26/17 Plan: 1) S/p removal of hardware L2S1, laminectomy T12, L1, revision laminectomy L2, posterior instrumented spinal fusion T10-S1, iliac bone marrow harvest - POD #2 - Still with pain, on Dilaudid GRAIN BROKER AND MARKET OPERATOR - Taking Oxycodone for break through pain - Continue PT - Incentive spirometer - Appreciate surgery consult 2) BPH - Voiding with no issues 3) Hiccups - Thorazine given 4) F/E/N: - Regular diet - Monitor electrolytes 5) Prophylaxis: - SCDs only - OOB ambulating - No chemical DVT prophylaxis per surgery 6) Dispo: - Awaiting for [facility] placement CODE STATUS: FULL CODE Visit type - Emergency Visit Emergency Visit: Yes ED Registration Date: 02/25/17 Care time: The patient presented to the Emergency Department on the above date and was hospitalized for further evaluation of their emergent condition. - New Patient This patient is new to me today: Yes Date on this admission: 02/28/17 - Critical Care Critical Care patient: No
--- NOTE | 2017-02-28 18:07 | PATH ---
Surgical Pathology Report Patient Name: CAROLINA JANE Med. Rec. #: [id number] /Age/Gender: 1960 (Age: 56) / M Account: [id number] Location: [address] [place] [address]/[facility] Taken: 02/26/2017 Received: 02/27/2017 Reported: 02/28/2017 Physicians: Bita Jules Specimen(s) Received HARDWARE FROM LUMBAR REGION AREA OF BACK Clinical History Spinal stenosis T12-L1, L2 thoracic lumbar kyphosis and instability Final Diagnosis THORACIC LUMBAR REGION, HARDWARE, REMOVAL: SURGICAL HARDWARE. MACROSCOPIC DIAGNOSIS. Electronically Signed Jannette Barnett M.D. Gross Description Received fresh labeled "hardware removed from lumbar region," is a 13.5 x 6.2 x 1.2 cm metallic portion of hardware. Also received within the same container are 10 metallic long screws ranging from 5.8-6.2 cm in length. There are 10 additional metallic smaller screws averaging 0.4 cm in length and 0.8 cm in diameter. No soft tissue is present. No sections are submitted gross only. 02/27/2017 saudi02/27/2017
--- NOTE | 2017-02-28 20:22 | PN ---
Progress Note (short form) - Note Progress Note: 56M doing well s/p removal of hardware L2-S1, laminectomy T12 & L1, revision laminectomy L2, posterior instrumented spinal fusion T10-S1 POD #2. Pain well controlled. Pt. reports continued B/L anterior thigh pain c/w neuropathic re-activation phenomenon. No acute events overnight. Pt. denies overnight history of headaches/chest pain/shortness of breath/nausea/ vomiting/chills/sweats. (+) Voiding; (+) Flatus; (-) BM. (+) Walked in hallway multiple times. All labs & vitals reviewed. PE: AAO x 3, NAD. Spine: Dressing C/D/I. Anatoliy drain C/D/I; output: 85cc/shift. B/L LE sensorimotor exam: remains at baseline. A/P: 56M doing well s/p removal of hardware L2-S1, laminectomy T12 & L1, revision laminectomy L2, posterior instrumented spinal fusion T10-S1 POD #2. -Pain control. -Mechanical DVT PPx. only (LEVON's & SCD's). -Incentive spirometry/aggressive pulmonary toilet. -PT/OT/Rehab, OOB. -WBAT B/L LE. -No HOB restrictions. -Monitor drain output. -Advance diet as tolerated. -Will follow. -Care per primary medical team. -Discharge planning.
[2017-02-28] MEDS: PANTOPRAZOLE 40 MG TABLET (FP) PO SCH (22:32)
[2017-02-28] MEDS: diazePAM 5 MG TABLET PO PRN (23:28)
[2017-03-01 07:30] LABS: HEMATOCRIT 41.4 % (35.4-49); HEMOGLOBIN 13.7 GM/dL (11.7-16.9); MCH 29.4 pg (25.7-33.7); MCHC 33.2 g/dl (32.0-35.9); MEAN CELL VOLUME 88.5 fl (80-96); MEAN PLT VOLUME 7.4 fl (7.5-11.1); PLATELET COUNT 256 K/MM3 (134-434); RBC 4.67 M/mm3 (4.00-5.60); RDW 12.6 % (11.9-15.9); WHITE BLOOD COUNT 14.2 K/mm3 (4.0-10.0)
--- NOTE | 2017-03-01 07:36 | PN ---
Progress Note (short form) - Note Progress Note: s/p thoracolumbar fusion under general anesthesia. INSTRUMENT TECHNOLOGIST used for post op pain, used ineffectively. will stop clinical research tech and convert to oral analgesic with iv dilaudid for breakthrough. dept of anesthesia will sign off care a tthis time.
[2017-03-01] MEDS ORDERED: oxyCODONE HCL 5 MG TABLET PO PRN ×3 (07:37→15:23)
[2017-03-01] MEDS ORDERED: HYDROmorphone HCL CARPU-JECT 2 MG/1 ML DISP.SYRIN IVPB PRN ×2 (07:39→15:22)
[2017-03-01 07:47] LABS: ALBUMIN 3.1 g/dl (3.4-5.0); ANION GAP 4 (8-16); BILIRUBIN,TOTAL 1.3 mg/dL (0.2-1.0); CALCIUM 8.3 mg/dL (8.5-10.1); CHLORIDE 104 mmol/L (98-107); CO2 31 mmol/L (21-32); CREATININE 0.8 mg/dL (0.7-1.3); GLUCOSE,RANDOM 93 mg/dL (74-106); POTASSIUM 3.8 mmol/L (3.5-5.1); SGOT/AST 30 U/L (15-37); SGPT/ALT 28 U/L (12-78); SODIUM 139 mmol/L (136-145); TOT PROT 6.3 g/dl (6.4-8.2)
[2017-03-01 07:48] LABS: ALK PHOS 75 U/L (45-117); BLOOD UREA NITROGEN 14 mg/dL (7-18)
[2017-03-01] MEDS: POLYETHYLENE GLYCOL 3350 119 GM BTL PO SCH (09:57)
[2017-03-01] MEDS: PANTOPRAZOLE 40 MG TABLET (FP) PO SCH (09:57)
--- NOTE | 2017-03-01 12:27 | PN ---
Progress Note (short form) - Note Progress Note: Subjective: The patient was seen and examined at the bedside, he has no complaints at this time Current Medications Generic Name Dose Route Start Last Admin Trade Name Gillian PRN Reason Stop Dose Admin Diazepam 5 mg 02/27/17 21:50 02/28/17 23:28 Valium - PO 5 mg Q8H PRN Administration BACK PAIN Hydromorphone HCl 2 mg 03/01/17 07:39 03/01/17 10:07 Dilaudid Injection - IVPB 2 mg Q4H PRN Administration PAIN Ondansetron HCl 4 mg 02/27/17 21:50 02/27/17 22:27 Zofran Injection IVPUSH 4 mg Q6H PRN Administration NAUSEA AND/OR VOMITING Oxycodone HCl 15 mg 03/01/17 07:37 Roxicodone - PO Q3H PRN PAIN Oxycodone HCl 10 mg 03/01/17 07:37 Roxicodone - PO Q3H PRN SEVERE PAIN Pantoprazole Sodium 40 mg 02/28/17 22:15 03/01/17 09:57 Protonix - PO 40 mg DAILY LEAH Administration Polyethylene Glycol 17 gm 02/28/17 13:15 03/01/17 09:57 Miralax (For Daily Use) - PO 17 gm DAILY LEAH Administration Objective: Vital Signs Period Temp Pulse Resp BP Sys/Cortez Pulse Ox Last 24 Hr 97.5 F-99.0 F 78-102 20-20 115-148/70-95 96 Physical Exam: General: NAD, A&Ox3 Lungs: CTA bilaterally Heart: RRR, S1S2 Ext: Warm, well-perfused. 2+ DP/PT bilaterally CBCD WBC 14.2 K/mm3 (4.0-10.0) H 03/01/17 07:00 RBC 4.67 M/mm3 (4.00-5.60) 03/01/17 07:00 Hgb 13.7 GM/dL (11.7-16.9) 03/01/17 07:00 Hct 41.4 % (35.4-49) 03/01/17 07:00 MCV 88.5 fl (80-96) 03/01/17 07:00 MCHC 33.2 g/dl (32.0-35.9) 03/01/17 07:00 RDW 12.6 % (11.9-15.9) 03/01/17 07:00 Plt Count 256 K/MM3 (134-434) 03/01/17 07:00 MPV 7.4 fl (7.5-11.1) L 03/01/17 07:00 CMP Sodium 139 mmol/L (136-145) 03/01/17 07:00 Potassium 3.8 mmol/L (3.5-5.1) 03/01/17 07:00 Chloride 104 mmol/L (98-107) 03/01/17 07:00 Carbon Dioxide 31 mmol/L (21-32) 03/01/17 07:00 Anion Gap 4 (8-16) L 03/01/17 07:00 BUN 14 mg/dL (7-18) 03/01/17 07:00 Creatinine 0.8 mg/dL (0.7-1.3) 03/01/17 07:00 Creat Clearance w eGFR > 60 (>60) 03/01/17 07:00 Random Glucose 93 mg/dL (74-106) 03/01/17 07:00 Calcium 8.3 mg/dL (8.5-10.1) L 03/01/17 07:00 Total Bilirubin 1.3 mg/dL (0.2-1.0) H 03/01/17 07:00 AST 30 U/L (15-37) D 03/01/17 07:00 ALT 28 U/L (12-78) 03/01/17 07:00 Alkaline Phosphatase 75 U/L (45-117) 03/01/17 07:00 Total Protein 6.3 g/dl (6.4-8.2) L 03/01/17 07:00 Albumin 3.1 g/dl (3.4-5.0) L 03/01/17 07:00 Assessment: This is a 56 year old male with PMHx of BPH, progressive back pain who presented with elective back surgery on 02/26/17 Plan: 1) S/p removal of hardware L2S1, laminectomy T12, L1, revision laminectomy L2, posterior instrumented spinal fusion T10-S1, iliac bone marrow harvest - POD #3 - Now off LEAK DETECTOR - On po pain medications - Continue PT: awaiting reevaluation off LEAK DETECTOR - Incentive spirometer - Appreciate surgery consult 2) BPH - Voiding with no issues 3) Hiccups - Resolved 4) F/E/N: - Regular diet - Monitor electrolytes 5) Prophylaxis: - SCDs only - OOB ambulating - No chemical DVT prophylaxis per surgery 6) Dispo: - Awaiting for [facility] re[facility] placement CODE STATUS: FULL CODE Visit type - Emergency Visit Emergency Visit: Yes ED Registration Date: 02/25/17 Care time: The patient presented to the Emergency Department on the above date and was hospitalized for further evaluation of their emergent condition. - New Patient This patient is new to me today: No - Critical Care Critical Care patient: No
[2017-03-01] MEDS: ONDANSETRON 4 MG/2 ML VIAL IVPUSH PRN (13:50)
[2017-03-01] MEDS: oxyCODONE HCL 5 MG TABLET PO PRN ×2 (15:38→21:13)
[2017-03-01] MEDS: diazePAM 5 MG TABLET PO PRN (21:12)
[2017-03-02] MEDS: oxyCODONE HCL 5 MG TABLET PO PRN ×3 (02:59→09:56)
[2017-03-02 07:30] LABS: HEMATOCRIT 39.8 % (35.4-49); HEMOGLOBIN 13.5 GM/dL (11.7-16.9); MCH 29.8 pg (25.7-33.7); MCHC 33.8 g/dl (32.0-35.9); MEAN CELL VOLUME 88.2 fl (80-96); MEAN PLT VOLUME 7.3 fl (7.5-11.1); PLATELET COUNT 259 K/MM3 (134-434); RBC 4.51 M/mm3 (4.00-5.60); WHITE BLOOD COUNT 8.7 K/mm3 (4.0-10.0)
[2017-03-02] MEDS: PANTOPRAZOLE 40 MG TABLET (FP) PO SCH (09:57)
[2017-03-02] MEDS: POLYETHYLENE GLYCOL 3350 119 GM BTL PO SCH (09:59)
--- NOTE | 2017-03-02 09:59 | DS ---
Physical Examination Vital Signs: Vital Signs Temperature 98.0 F 03/02/17 08:46 Pulse Rate 75 03/02/17 08:46 Respiratory Rate 19 03/02/17 08:46 Blood Pressure 130/79 03/02/17 08:46 O2 Sat by Pulse Oximetry (%) 99 03/01/17 21:00 Labs: CBC, BMP 03/02/17 07:10 03/01/17 07:00 Discharge Summary Reason For Visit: CHRONIC LOW BACK PAIN Current Active Problems Chronic lower back pain (Acute) Hospital Course: REBECCA drain removed prior to discharge Condition: Improved - Instructions Diet, Activity, Other Instructions: Please return to the ED with new, persistent, or worsening symptoms. Please follow-up with providers as indicated. Referrals: Jonas Maurice MD [Primary Care Provider] - 1 Week Gurmeet Torres MD [Staff Physician] - (Please follow-up with surgery within 3-5 days for outpatient surgical follow-up) Disposition: HOME - Home Medications Comprehensive Discharge Medication List: Ambulatory Orders Docosahexanoic Acid/Epa [Fish Oil Softgel] 1 each PO DAILY 02/11/12 Diazepam [Valium] 5 mg PO Q8H PRN tablet MDD 15mg 03/02/17 Docusate Sodium [Colace -] 100 mg PO TID #0 capsule 03/02/17 Oxycodone HCl [Roxicodone -] 10 mg PO Q3H PRN tablet MDD 45mg total oxycodone 03/02/17 Oxycodone HCl [Roxicodone -] 15 mg PO Q3H PRN tablet MDD 45mg total oxycodone 03/02/17 Polyethylene Glycol 3350 [Miralax 119 gm Btl -] 17 gm PO DAILY bottle 03/02/17 Sennosides [Senna -] 2 tab PO DAILY #60 tablet 03/02/17
[2017-03-02] MEDS ORDERED: SENNOSIDES 8.6MG TABLET (FP) PO ONE (10:00)
[2017-03-02] MEDS ORDERED: DOCUSATE SODIUM 100 MG CAPSULE (FP) PO SCH (14:00)
[2017-03-02 15:47] VITALS: BP 150/84; PULSE 81; TEMP 97.7
[2017-03-02] MEDS ORDERED: LACTULOSE 20 GM/30 ML UDC (FOR ORAL USE ONLY) PO ONE (16:37)
--- NOTE | 2017-03-02 22:03 | PN ---
Progress Note (short form) - Note Progress Note: 56M doing well s/p removal of hardware L2-S1, laminectomy T12 & L1, revision laminectomy L2, posterior instrumented spinal fusion T10-S1 POD #4. Pain well controlled. Pt. again reports continued B/L anterior thigh pain c/w neuropathic re-activation phenomenon. No acute events overnight. Pt. denies overnight history of headaches/chest pain/shortness of breath/nausea/ vomiting/chills/sweats. (+) Voiding; (+) Flatus; (-) BM. (+) Walked in hallway multiple times. All labs & vitals reviewed. PE: AAO x 3, NAD. Spine: Dressing C/D/I. Anatoliy drain C/D/I. Dressing & drain removed on rounds. Dressing changed. B/L LE sensorimotor exam: remains at baseline. A/P: 56M doing well s/p removal of hardware L2-S1, laminectomy T12 & L1, revision laminectomy L2, posterior instrumented spinal fusion T10-S1 POD #4. -Pain control. -Mechanical DVT PPx. only (LEVON's & SCD's). -Incentive spirometry/aggressive pulmonary toilet. -PT/OT/Rehab, OOB. -WBAT B/L LE. -No HOB restrictions. -Monitor drain output. -Advance diet as tolerated. -Will follow. -Care per primary medical team. -Discharge planning: f/u in [place] office [facility] 03/06/2017.
== END 2017-03-02 19:15 | disposition home or self-care (01) | DRG 304 ==
LOC: JER 13:07 → JERBED 16:00 → JICU 02-26 20:37 → J5S 02-27 20:25
PROVIDERS: ADMIT Orthopaedic Surgery Orthopaedic Surgery of the Spine; ATTEND Registered Nurse
PROC: 0RGA071 Fusion of Thoracolumbar Vertebral Joint with Autologous Tissue Substitute, Posterior Approach, Posterior Column, Open Approach (ICD-10-PCS; 2017-02-26)
PROC: 4A10X4G Monitoring of Central Nervous Electrical Activity, Intraoperative, External Approach (ICD-10-PCS; 2017-02-26)
PROC: 0RPA04Z Removal of Internal Fixation Device from Thoracolumbar Vertebral Joint, Open Approach (ICD-10-PCS; 2017-02-26)
PROC: 0RGA0AJ Fusion of Thoracolumbar Vertebral Joint with Interbody Fusion Device, Posterior Approach, Anterior Column, Open Approach (ICD-10-PCS; principal; 2017-02-26 08:00)
DX: M48.05 Spinal stenosis, thoracolumbar region (principal); M51.05 Intervertebral disc disorders with myelopathy, thoracolumbar region; M54.15 Radiculopathy, thoracolumbar region; N40.0 Benign prostatic hyperplasia without lower urinary tract symptoms; F17.200 Nicotine dependence, unspecified, uncomplicated; D72.828 Other elevated white blood cell count; R06.6 Hiccough
CPT/HCPCS: 36415; 71010-TC; 76000-TC; 80048; 80053; 81003; 83735; 84100; 85025; 85027; 85610; 86850; 86900; 86901; 88300-TC; 93005; 93010; 94760; 97116-GP; 97161-GP; 99283-25; J1644

== ENCOUNTER 2017-07-01 19:39 | Inpatient (IN) | payer OTHER ==
--- NOTE | 2017-07-01 21:15 | PDOC ---
History of Present Illness - General Chief Complaint: Back Pain Stated Complaint: PCP SENT/BACK PAIN Time Seen by Provider: 07/01/17 21:10 History Source: Patient Exam Limitations: No Limitations - History of Present Illness Initial Comments: 07/01/17 21:10 Patient is a 57-year-old male with history of chronic back pain, fracture elbow , spinal fusion x 4, rotator cuff, seasonal allergies, here with complaints of lower back pain, referred for preop workup and admission for Coccygectomy scheduled for tomorrow by Dr. Torres. States had a fusion procedure in 02/25 and about 1.5 months started to have lower back pain again, saddle anesthesia, and difficulty passing his BM. Xray taken shows has a fracture coccyx with some displacement. PMD: Dr. Maurice PMHX: as above PSOCHX: neg ALL: NKDA GENERAL/CONSTITUTIONAL: [No fever or chills. No weakness. No weight change.] HEAD, EYES, EARS, NOSE AND THROAT: [No change in vision. No ear pain or discharge. No sore throat.] CARDIOVASCULAR: [No chest pain or shortness of breath.] RESPIRATORY: [No cough, wheezing, or hemoptysis.] GASTROINTESTINAL: [No nausea, vomiting, diarrhea or constipation. No rectal bleeding.] GENITOURINARY: [No dysuria, frequency, or change in urination.] MUSCULOSKELETAL: (+) joint or muscle swelling or pain. No neck pain, (+)back pain.] SKIN AND BREASTS: [No rash or easy bruising.] NEUROLOGIC: [No headache, vertigo, loss of consciousness, or loss of sensation.] PSYCHIATRIC: [No depression or anxiety.] ENDOCRINE: [No increased thirst. No abnormal weight change.] HEMATOLOGIC/LYMPHATIC: [No anemia, easy bleeding, or history of blood clots.] ALLERGIC/IMMUNOLOGIC: [No hives or skin allergy. No latex allergy.] GENERAL: [The patient is awake, alert, and fully oriented, in moderate painful distress, pacing.] HEAD: [Normal with no signs of trauma.] EYES: [Pupils equal, round and reactive to light, extraocular movements intact, sclera anicteric, conjunctiva clear.] ENT: [Ears normal, nares patent, oropharynx clear without exudates. Moist mucous membranes.] NECK: [Normal range of motion, supple without lymphadenopathy, JVD, or masses.] LUNGS: [Breath sounds equal, clear to auscultation bilaterally. No wheezes, and no crackles.] HEART: [Regular rate and rhythm, normal S1 and S2 without murmur, rub.] ABDOMEN: [Soft, nontender, normoactive bowel sounds. No guarding, no rebound. No masses.] BACK: Lumbar and coccyx tenderness to palp, EXTREMITIES: [Normal range of motion, no edema. No clubbing or cyanosis. No cords, erythema, or tenderness.] NEUROLOGICAL: [Cranial nerves II through XII grossly intact. Normal speech, normal gait.] PSYCH: [Normal mood, normal affect.] SKIN: [Warm, Dry, normal turgor, no rashes or lesions noted.] Past History - Past Medical History Allergies/Adverse Reactions: Allergies Allergy/AdvReac Type Severity Reaction Status Date / Time No Known Allergies Allergy Verified 07/01/17 21:36 Home Medications: Ambulatory Orders Docosahexanoic Acid/Epa [Fish Oil Softgel] 1 each PO DAILY 02/11/12 Diazepam [Valium] 5 mg PO Q8H #30 tablet MDD 15mg 03/02/17 Docusate Sodium [Colace -] 100 mg PO TID PRN #30 capsule 03/02/17 Pantoprazole Sodium [Protonix] 40 mg PO DAILY #30 tablet.dr 03/02/17 Polyethylene Glycol 3350 [Miralax 119 gm Btl -] 17 gm PO DAILY bottle 03/02/17 Sennosides [Senna -] 2 tab PO DAILY #60 tablet 03/02/17 oxyCODONE HCL [Roxicodone -] 10 mg PO Q3H PRN tablet MDD 45mg total oxycodone 03/02/17 oxyCODONE HCL [Roxicodone -] 15 mg PO Q3H PRN #60 tablet MDD 45mg 03/02/17 COPD: No DVT: No Dementia: No - Suicide/Smoking/Psychosocial Hx Smoking Status: No Smoking History: Never smoked Have you smoked in the past 12 months: No Number of Cigarettes Smoked Daily: 0 Information on smoking cessation initiated: No Hx Alcohol Use: No Drug/Substance Use Hx: No Substance Use Type: None Hx Substance Use Treatment: No Trauma Specific PMHX - Complaint Specific PMHX Back Injury: Yes *Physical Exam - Vital Signs Last Vital Signs Temp Pulse Resp BP Pulse Ox 97 F L 102 H 20 150/87 95 07/01/17 19:46 07/01/17 19:46 07/01/17 19:46 07/01/17 19:46 07/01/17 19:46 ED Treatment Course - LABORATORY CBC & Chemistry Diagram: 07/01/17 21:31 07/01/17 21:31 Medical Decision Making - Medical Decision Making 07/01/17 21:31 Patient is a 57-year-old male with history of chronic back pain, fracture elbow , spinal fusion x 4, rotator cuff, seasonal allergies, here with complaints of lower back pain, referred for preop workup and admission for Coccygectomy scheduled for tomorrow by Dr. Torres. will do preop labs pain meds cxr, ekg. Patient given Morphine 4mg IV, had some pain relief but then pain returned EKG: SR rate 84, NAD, (-) ST-t wave changes no acute finding on labs cxr neg Patient given Perocet x 3 tabs, valium 10mg po, flexeril 10mg po routine meds at night case d/w Dr. Torres will admit. *DC/Admit/Observation/Transfer Diagnosis at time of Disposition: Coccydynia, Intractable back pain - Discharge Dispostion Admit: Yes - Referrals - Patient Instructions - Post Discharge Activity
[2017-07-01] MEDS ORDERED: HYDROmorphone HCL CARPU-JECT 1 MG/1 ML DISP.SYRIN IVPB ONE (21:34)
[2017-07-01 21:38] LABS: BASO % 0.5 % (0-2.0); EOS % 3.1 % (0-4.5); HEMATOCRIT 52.1 % (35.4-49); HEMOGLOBIN 17.5 GM/dL (11.7-16.9); LYMPH % 21.7 % (8-40); MCH 28.7 pg (25.7-33.7); MCHC 33.6 g/dl (32.0-35.9); MEAN CELL VOLUME 85.4 fl (80-96); MEAN PLT VOLUME 7.4 fl (7.5-11.1); MONO % 8.2 % (3.8-10.2); NEUT % 66.5 % (42.8-82.8); PLATELET COUNT 308 K/MM3 (134-434); RBC 6.11 M/mm3 (4.00-5.60); RDW 13.9 % (11.9-15.9); WHITE BLOOD COUNT 8.6 K/mm3 (4.0-10.0)
[2017-07-01] MEDS ORDERED: morphine CARPU-JECT 4 MG/1 ML DISP.SYRIN IVPUSH ONE (22:15)
[2017-07-01] MEDS ORDERED: MORPHINE SULFATE 10 MG/1 ML *VIAL ONE (22:16)
[2017-07-01 22:39] LABS: INR 0.99 (0.82-1.09); PROTHROMBIN TIME (PATIENT) 11.2 SEC (9.98-11.88)
[2017-07-01 22:41] LABS: ACTIVATED PTT 26.9 SECONDS (26.9-34.4)
[2017-07-01 22:52] LABS: ANION GAP 8 (8-16); BLOOD UREA NITROGEN 14 mg/dL (7-18); CALCIUM 8.9 mg/dL (8.5-10.1); CHLORIDE 106 mmol/L (98-107); CO2 25 mmol/L (21-32); CREATININE 1.1 mg/dL (0.7-1.3); GLUCOSE,RANDOM 108 mg/dL (74-106); POTASSIUM 4.3 mmol/L (3.5-5.1); SODIUM 139 mmol/L (136-145)
[2017-07-01] MEDS ORDERED: diazePAM 5 MG TABLET PO ONE (23:19)
[2017-07-01] MEDS ORDERED: diazePAM 5 MG TABLET ONE (23:25)
[2017-07-01] MEDS ORDERED: CYCLOBENZAPRINE HCL 10 MG TABLET (FP) PO ONE (23:29)
[2017-07-02] MEDS ORDERED: CYCLOBENZAPRINE HCL 10 MG TABLET (FP) ONE (01:01)
[2017-07-02 01:55] VITALS: BMI 27.6
[2017-07-02] MEDS ORDERED: oxyCODONE HCL 5 MG TABLET PO PRN ×7 (02:35→17:49)
[2017-07-02] MEDS ORDERED: ACETAMINOPHEN 325 MG TABLET (FP) PO ONE (02:45)
[2017-07-02] MEDS ORDERED: SODIUM CHLORIDE 1,000 ML IV SCH ×2 (03:15→17:49)
[2017-07-02] MEDS ORDERED: ACETAMINOPHEN 325 MG TABLET (FP) PO PRN (03:35)
--- NOTE | 2017-07-02 11:06 | EKG ---
Test Reason : Blood Pressure : / mmHG Vent. Rate : 084 BPM Atrial Rate : 084 BPM P-R Int : 146 ms QRS Dur : 102 ms QT Int : 360 ms P-R-T Axes : 073 036 035 degrees QTc Int : 425 ms NORMAL SINUS RHYTHM NONSPECIFIC T WAVE ABNORMALITY ABNORMAL ECG WHEN COMPARED WITH ECG OF 25-FEB-2017 15:40, NO SIGNIFICANT CHANGE WAS FOUND Confirmed by LINDEN DESOUZA MD ([id number]) on 07/02/2017 11:05:32 AM Referred By: Confirmed By:LINDEN DESOUZA MD
[2017-07-02] MEDS ORDERED: SUCCINYLCHOLINE CHLORIDE 200 MG/10 ML VIAL ONE (14:48)
[2017-07-02] MEDS ORDERED: fentaNYL CITRATE 250 MCG/5 ML VIAL ONE (14:48)
[2017-07-02] MEDS ORDERED: MIDAZOLAM HCL 2 MG/2 ML SINGLE DOSE VIAL ONE ×3 (14:48→15:22)
[2017-07-02] MEDS ORDERED: PROPOFOL 20 ML ONE ×2 (14:48→16:19)
[2017-07-02] MEDS ORDERED: ROCURONIUM BROMIDE 50 MG/5 ML VIAL ONE (14:48)
[2017-07-02] MEDS ORDERED: DEXAMETHASONE SOD PHOSPHATE 4 MG/1 ML VIAL ONE (14:49)
[2017-07-02] MEDS ORDERED: VANCOMYCIN 1,000 MG VIAL (RESTRICTED TO ID ONLY) ONE (14:49)
[2017-07-02] MEDS ORDERED: LIDOCAINE HCL/PF 2% SDV 5ML VIAL ONE (14:49)
[2017-07-02] MEDS ORDERED: ONDANSETRON 4 MG/2 ML VIAL ONE (14:49)
[2017-07-02] MEDS ORDERED: TRANEXAMIC ACID 1000 MG/10 ML VIAL ONE (14:49)
[2017-07-02] MEDS ORDERED: ceFAZolin SODIUM 1 GM VIAL ONE (14:49)
[2017-07-02] MEDS ORDERED: SODIUM CHLORIDE 0.9% P/F 10 ML VIAL IJ ONE (14:51)
[2017-07-02] MEDS ORDERED: BUPIVACAINE HCL/PF 0.5% (5MG/ML) 10 ML VIAL ONE (14:56)
[2017-07-02] MEDS ORDERED: VANCOMYCIN 1,000 MG VIAL (RESTRICTED TO ID ONLY) IVPB ONE (15:00)
[2017-07-02] MEDS ORDERED: ceFAZolin SODIUM 1 GM VIAL IVPB ONE (15:45)
[2017-07-02] MEDS ORDERED: ONDANSETRON 4 MG/2 ML VIAL IVPUSH PRN ×4 (17:02→17:49)
[2017-07-02] MEDS ORDERED: PROMETHAZINE HCL 25 MG/1 ML VIAL IVPUSH PRN ×2 (17:02→17:49)
--- NOTE | 2017-07-02 17:10 | OP ---
Operative Note - Note: Operative Date: 07/02/17 Pre-Operative Diagnosis: Coccydynia Operation: 1. Coccygectomy. 2. Ano-coccygeal ligament reconstruction Post-Operative Diagnosis: Same as Pre-op Surgeon: Gurmeet Torres Professor Of Mechanical Engineering: Chalo Torres Anesthesiologist/STEEL ERECTOR APPRENTICE: Syed Parsons Anesthesia: General Specimens Removed: Coccyx Estimated Blood Loss (mls): 75 Operative Report Dictated: Yes
--- NOTE | 2017-07-02 17:14 | PN ---
Progress Note (short form) - Note Progress Note: 57M s/p coccygectomy POD #0. -Pain control. -DVT PPx. - Mechanical: LEVON's, SCD's. - Chemical: ASA 81mg PO BID x 6 weeks. -Incentive spirometry. -PT/OT/Rehab, OOB. -WBAT B/L LE. -Diet as tolerated. -Florinda-op antibiotics. -Care per medical hospitalist team. -Discharge planning. -Will follow. Chalo Torres MD (Orthopaedic Surgery).
[2017-07-02] MEDS ORDERED: LACTATED RINGERS SOLUTION 1,000 ML IV SCH ×3 (17:15→17:49)
[2017-07-02] MEDS ORDERED: POLYETHYLENE GLYCOL 3350 119 GM BTL PO PRN (17:15)
[2017-07-02] MEDS ORDERED: MAG HYDROX/AL HYDROX/SIMETH 30 ML UNIT-DOSE CUP PO PRN ×2 (17:16→17:49)
[2017-07-02] MEDS ORDERED: VANCOMYCIN 1,000 MG in DEXTROSE 5%-WATER - 250 ML IVPB ONE (17:16)
[2017-07-02] MEDS ORDERED: ACETAMINOPHEN 1000 MG/100 ML VIAL (NON FORMULARY) IVPB ONE (17:30)
[2017-07-02] MEDS ORDERED: MAGNESIUM HYDROX 2400MG/30ML ORAL SUSPENSION 30 ML CUP PO PRN ×2 (17:49→17:52)
[2017-07-02] MEDS ORDERED: ACETAMINOPHEN 1000 MG/100 ML VIAL (NON FORMULARY) IVPB SCH (18:00)
[2017-07-02] MEDS: LACTATED RINGERS SOLUTION 1,000 ML IV SCH (18:32)
--- NOTE | 2017-07-02 19:31 | OP ---
DATE OF OPERATION: DATE OF DICTATION: 07/02/2017 SURGEON: Gurmeet Torres MD EQUAL OPPORTUNITY COUNSELOR: Chalo Torres MD PREOPERATIVE DIAGNOSIS: Coccydynia. POSTOPERATIVE DIAGNOSIS: Coccydynia. OPERATION PERFORMED: 1. Coccygectomy. 2. Reconstruction of anococcygeal ligament. ANESTHESIA: Spinal with conscious sedation. OPERATION DETAILS: Patient placed prone on a Arik frame. The anococcygeal region was prepped with Betadine scrub solution, wiped off with alcohol, DuraPrep applied. A window drape applied to this region. Easy access to the sacrococcygeal region clearly noted. Chalo Torres MD, was the internal medicine physician assistant. He played a role in retraction, washout, suction, and retraction of bone bed and wound closure. A midline incision utilized. The dissection was taken through the skin and subcutaneous tissue directly down to the bone. The joints of the entire coccygeal region identified. The last mobile segment proximally not identified, and the entire coccyx was shelled out with sharp dissection. Right at the end, the last element of the coccyx was lifted, and two No. 1 Vicryl sutures placed into the very firm tissue of the ligament and the ligament from sequential depth positioning. The pursestring was performed to catch and draw the ligament up proximally and close the deep space onto it accordingly. After that, No. 1 Vicryl sutures closed the deep tissues and subcutaneous tissue, and the skin was closed with 3-0 Monocryl. All hemostasis was achieved throughout the procedure. No complications. Gurmeet Torres MD [id number]
[2017-07-02] MEDS: oxyCODONE HCL 5 MG TABLET PO PRN (21:40)
[2017-07-02] MEDS: diazePAM 5 MG TABLET PO SCH (21:40)
[2017-07-02] MEDS: CYCLOBENZAPRINE HCL 10 MG TABLET (FP) PO SCH (21:40)
[2017-07-02] MEDS: DOCUSATE SODIUM 100 MG CAPSULE (FP) PO SCH (21:41)
[2017-07-02] MEDS: POLYETHYLENE GLYCOL 3350 119 GM BTL PO SCH (21:41)
[2017-07-02] MEDS ORDERED: SENNOSIDES/DOCUSATE COMBO (SENNA PLUS) TABLET (UD) PO SCH (22:00)
[2017-07-02] MEDS ORDERED: POLYETHYLENE GLYCOL 3350 119 GM BTL PO SCH (22:00)
[2017-07-02] MEDS ORDERED: DIAZEPAM 5 MG PO SCH ×2 (22:00)
[2017-07-02] MEDS ORDERED: CYCLOBENZAPRINE HCL 10 MG TABLET (FP) PO SCH (22:00)
[2017-07-02] MEDS ORDERED: CEFAZOLIN 2 GM/D5W 2 GM/50 ML ML IVPB SCH (23:00)
[2017-07-02] MEDS: CEFAZOLIN 2 GM/D5W 2 GM/50 ML ML IVPB SCH (23:13)
[2017-07-02] MEDS ORDERED: CYCLOBENZAPRINE HCL 5 MG TABLET PO ONE (23:20)
[2017-07-03] MEDS: ACETAMINOPHEN 1000 MG/100 ML VIAL (NON FORMULARY) IVPB SCH ×2 (01:04→09:23)
[2017-07-03] MEDS: oxyCODONE HCL 5 MG TABLET PO PRN ×3 (02:05→17:20)
[2017-07-03] MEDS ORDERED: VANCOMYCIN 1,000 MG in DEXTROSE 5%-WATER - 250 ML IVPB ONE (04:00)
[2017-07-03] MEDS: CEFAZOLIN 2 GM/D5W 2 GM/50 ML ML IVPB SCH (06:48)
[2017-07-03] MEDS ORDERED: PT OWN MED DRAWER 7, Y5N ONE (07:01)
[2017-07-03] MEDS ORDERED: KETOROLAC TROMETHAMINE 30 MG/1 ML VIAL IVPUSH STA (07:33)
[2017-07-03 07:52] LABS: HEMATOCRIT 47.4 % (35.4-49); HEMOGLOBIN 16.3 GM/dL (11.7-16.9); MCH 29.2 pg (25.7-33.7); MCHC 34.3 g/dl (32.0-35.9); MEAN CELL VOLUME 85.2 fl (80-96); MEAN PLT VOLUME 7.7 fl (7.5-11.1); PLATELET COUNT 261 K/MM3 (134-434); RBC 5.57 M/mm3 (4.00-5.60); RDW 13.6 % (11.9-15.9); WHITE BLOOD COUNT 12.8 K/mm3 (4.0-10.0)
[2017-07-03 07:59] LABS: ANION GAP 11 (8-16); BLOOD UREA NITROGEN 14 mg/dL (7-18); CALCIUM 8.7 mg/dL (8.5-10.1); CHLORIDE 103 mmol/L (98-107); CO2 24 mmol/L (21-32); GLUCOSE,RANDOM 119 mg/dL (74-106); POTASSIUM 3.9 mmol/L (3.5-5.1); SODIUM 138 mmol/L (136-145)
[2017-07-03] MEDS ORDERED: KETOROLAC TROMETHAMINE 30 MG/1 ML VIAL IVPUSH ONE (08:00)
--- NOTE | 2017-07-03 08:45 | PN ---
Progress Note (short form) - Note Progress Note: POD #1 - s/p coccygectomy under spinal anesthesia. VSS. Pt. doing well, walking about the floor without complications. No apparent anesthetic complications noted. Pain meds as per surgery. Continue current care.
--- NOTE | 2017-07-03 08:45 | PN ---
Physical Exam: SUBJECTIVE: Patient seen and examined at bedside. Has been up walking, difficult to lay in bed with pain which is 5/10, sometimes higher. OBJECTIVE: Vital Signs Period Temp Pulse Resp BP Sys/Cortez Pulse Ox Last 24 Hr 97.4 F-98.6 F 77-99 16-20 105-148/65-98 94-100 General: A&Ox3. No acute distress CV: S1, S2, rrr Pulm: CTA Abd: soft, not tender, not distended Upper Ext: 2+ pulses, warm, well-perfused, no edema Lower Ext: 2+ pulses, warm, well-perfused, no edema; 5/5 motor, 5/5 sensory Musculoskeletal: Surgical dressing across lower sacrum/coccyx c/d/i; no surrounding bleeding, fluctuance, or tenderness Laboratory Results - last 24 hr 07/03/17 07/03/17 06:20 06:20 WBC 12.8 H D RBC 5.57 Hgb 16.3 Hct 47.4 MCV 85.2 MCH 29.2 MCHC 34.3 RDW 13.6 Plt Count 261 MPV 7.7 Sodium 138 Potassium 3.9 Chloride 103 Carbon Dioxide 24 Anion Gap 11 BUN 14 Creatinine 1.0 Random Glucose 119 H Calcium 8.7 Active Medications Generic Name Dose Route Start Last Admin Trade Name Freq PRN Reason Stop Dose Admin Acetaminophen 1,000 mg 07/03/17 01:30 07/03/17 01:04 Ofirmev Injection - IVPB 07/03/17 09:31 1,000 mg Q8H LEAH Administration Al Hydroxide/Mg Hydroxide 30 ml 07/02/17 17:49 Mylanta Oral Suspension - PO Q4H PRN DYSPEPSIA Cyclobenzaprine HCl 10 mg 07/02/17 22:00 07/02/17 21:40 Flexeril - PO 10 mg HS LEAH Administration Diazepam 5 mg 07/02/17 22:00 07/02/17 21:40 Valium - PO 5 mg HS LEAH Administration Docusate Sodium 300 mg 07/02/17 22:00 07/02/17 21:41 Colace - PO 300 mg HS LEAH Administration Lactated Ringer's 1,000 mls @ 75 mls/hr 07/02/17 17:49 07/02/17 18:32 Lactated Ringers Solution IV 150 mls ASDIR LEAH Administration Magnesium Hydroxide 30 ml 07/02/17 17:49 Milk Of Magnesia - PO PRN PRN CONSTIPATION Ondansetron HCl 4 mg 07/02/17 17:49 Zofran Injection IVPUSH Q6H PRN NAUSEA Oxycodone HCl 5 mg 07/02/17 17:49 Roxicodone - PO 07/03/17 17:20 Q4H PRN PAIN LEVEL 6-10 Oxycodone HCl 10 mg 07/02/17 17:49 07/03/17 02:05 Roxicodone - PO 10 mg Q4H PRN Administration PAIN LEVEL 6-10 Pantoprazole Sodium 40 mg 07/03/17 10:00 Protonix - PO DAILY LEAH Polyethylene Glycol 17 gm 07/02/17 22:00 07/02/17 21:41 Miralax (For Daily Use) - PO 17 gm BID LEAH Administration Promethazine HCl 12.5 mg 07/02/17 17:49 Phenergan Injection - IVPUSH Q6H PRN NAUSEA-FOR RESCUE AFTER 15 MIN ASSESSMENT/PLAN 57 year-old male with a PMH significant for chronic back pain s/p spinal fusion surgeries x 4 and coccydynia. Coccydynia s/p coccygectomy and ano-coccygeal ligament reconstruction --perioperative antibiotics as per surgery --pain not well-managed; added morphine 4mg q6h PRN for pain 7-10 --patient ambulating well --start ASA 81mg BID, to continue for 6 weeks --physical therapy DVT prophylaxis: SCDs, oob, ambulation Visit type - Emergency Visit Emergency Visit: Yes ED Registration Date: 07/01/17 Care time: The patient presented to the Emergency Department on the above date and was hospitalized for further evaluation of their emergent condition. - New Patient This patient is new to me today: Yes Date on this admission: 07/03/17 - Critical Care Critical Care patient: No
[2017-07-03] MEDS: PANTOPRAZOLE 40 MG TABLET (FP) PO SCH (09:24)
[2017-07-03] MEDS: POLYETHYLENE GLYCOL 3350 119 GM BTL PO SCH ×2 (09:26→21:05)
[2017-07-03] MEDS ORDERED: PANTOPRAZOLE 40 MG TABLET (FP) PO SCH (10:00)
[2017-07-03] MEDS ORDERED: oxyCODONE HCL 5 MG TABLET PO PRN (13:20)
[2017-07-03] MEDS: morphine SULFATE 4 MG/ML VIAL IVPUSH PRN ×2 (13:39→20:03)
[2017-07-03] MEDS: ASPIRIN COATED 81 MG TABLET.EC PO SCH ×2 (15:49→21:03)
[2017-07-03] MEDS: LACTATED RINGERS SOLUTION 1,000 ML IV SCH (18:42)
[2017-07-03] MEDS: DOCUSATE SODIUM 100 MG CAPSULE (FP) PO SCH (21:03)
[2017-07-03] MEDS: diazePAM 5 MG TABLET PO SCH (21:03)
[2017-07-03] MEDS: CYCLOBENZAPRINE HCL 10 MG TABLET (FP) PO SCH (21:03)
[2017-07-04] MEDS: LACTATED RINGERS SOLUTION 1,000 ML IV SCH (00:15)
[2017-07-04] MEDS: morphine SULFATE 4 MG/ML VIAL IVPUSH PRN ×4 (01:56→19:52)
[2017-07-04] MEDS: oxyCODONE HCL 5 MG TABLET PO PRN ×2 (04:14→10:25)
[2017-07-04 08:00] LABS: HEMATOCRIT 47.7 % (35.4-49); HEMOGLOBIN 15.9 GM/dL (11.7-16.9); MCH 28.6 pg (25.7-33.7); MCHC 33.3 g/dl (32.0-35.9); MEAN PLT VOLUME 7.8 fl (7.5-11.1); PLATELET COUNT 266 K/MM3 (134-434); RBC 5.55 M/mm3 (4.00-5.60); RDW 13.8 % (11.9-15.9); WHITE BLOOD COUNT 9.4 K/mm3 (4.0-10.0)
[2017-07-04] MEDS: PANTOPRAZOLE 40 MG TABLET (FP) PO SCH (10:25)
[2017-07-04] MEDS: ASPIRIN COATED 81 MG TABLET.EC PO SCH ×2 (10:25→21:46)
[2017-07-04] MEDS: POLYETHYLENE GLYCOL 3350 119 GM BTL PO SCH ×2 (10:26→21:47)
--- NOTE | 2017-07-04 10:53 | PN ---
Physical Exam: SUBJECTIVE: Patient seen and examined in sunroom on floor. Walking quite a bit. Numbness across lower back and some radiating pain down left leg earlier today now resolved. Had BM today. Pain is not at acceptable level, feels it is not well-controlled. OBJECTIVE: Vital Signs Period Temp Pulse Resp BP Sys/Cortez Pulse Ox Last 24 Hr 97.6 F-99 F 84-100 18-18 120-157/70-96 97 GENERAL: The patient is awake, alert, and fully oriented, in no acute distress. LUNGS: Breath sounds equal, clear to auscultation bilaterally, no wheezes, no crackles, no accessory muscle use. HEART: Regular rate and rhythm, S1, S2 EXTREMITIES: 2+ pulses, warm, well-perfused, no edema. NEUROLOGICAL: Cranial nerves II through XII grossly intact. Normal speech, steady gait Musculoskeletal: Surgical dressing across lower sacrum/coccyx c/d/i; no surrounding bleeding, fluctuance, or tenderness Laboratory Results - last 24 hr 07/04/17 06:20 WBC 9.4 RBC 5.55 Hgb 15.9 Hct 47.7 MCV 86.0 MCH 28.6 MCHC 33.3 RDW 13.8 Plt Count 266 MPV 7.8 Active Medications Generic Name Dose Route Start Last Admin Trade Name Freq PRN Reason Stop Dose Admin Al Hydroxide/Mg Hydroxide 30 ml 07/02/17 17:49 Mylanta Oral Suspension - PO Q4H PRN DYSPEPSIA Aspirin 81 mg 07/03/17 13:45 07/04/17 10:25 Ecotrin - PO 81 mg BID LEAH Administration Cyclobenzaprine HCl 10 mg 07/02/17 22:00 07/03/17 21:03 Flexeril - PO 10 mg HS LEAH Administration Diazepam 5 mg 07/02/17 22:00 07/03/17 21:03 Valium - PO 5 mg HS LEAH Administration Docusate Sodium 300 mg 07/02/17 22:00 07/03/17 21:03 Colace - PO 300 mg HS LEAH Administration Lactated Ringer's 1,000 mls @ 75 mls/hr 07/02/17 17:49 07/04/17 00:15 Lactated Ringers Solution IV 75 mls/hr ASDIR LEAH Administration Magnesium Hydroxide 30 ml 07/02/17 17:49 Milk Of Magnesia - PO PRN PRN CONSTIPATION Morphine Sulfate 4 mg 07/03/17 13:18 07/04/17 08:52 Morphine Sulfate IVPUSH 4 mg Q6H PRN Administration PAIN LEVEL 7 - 10 Ondansetron HCl 4 mg 07/02/17 17:49 Zofran Injection IVPUSH Q6H PRN NAUSEA Oxycodone HCl 10 mg 07/03/17 13:20 07/04/17 10:25 Roxicodone - PO 10 mg Q4H PRN Administration PAIN LEVEL 4 - 6 Pantoprazole Sodium 40 mg 07/03/17 10:00 07/04/17 10:25 Protonix - PO 40 mg DAILY LEAH Administration Polyethylene Glycol 17 gm 07/02/17 22:00 07/04/17 10:26 Miralax (For Daily Use) - PO 17 gm BID LEAH Administration Promethazine HCl 12.5 mg 07/02/17 17:49 Phenergan Injection - IVPUSH Q6H PRN NAUSEA-FOR RESCUE AFTER 15 MIN ASSESSMENT/PLAN: 57 year-old male with a PMH significant for chronic back pain s/p spinal fusion surgeries x 4 and coccydynia. Coccydynia s/p coccygectomy and ano-coccygeal ligament reconstruction --perioperative antibiotics as per surgery --pain still not adequately controlled; no IV dilaudid in pharmacy; increase morphine 6mg q4h PRN for pain 7-10 --patient ambulating well --continue ASA 81mg BID, to continue for 6 weeks --physical therapy --bowel regimen PRN: colace, miralax, MOM, bisocodyl DVT prophylaxis: SCDs, oob, ambulation Physical therapy Dispo: continues to require inpatient care, requiring IV pain medications. Full code. Visit type - Emergency Visit Emergency Visit: Yes ED Registration Date: 07/01/17 Care time: The patient presented to the Emergency Department on the above date and was hospitalized for further evaluation of their emergent condition. - New Patient This patient is new to me today: No - Critical Care Critical Care patient: No
[2017-07-04] MEDS ORDERED: BISACODYL 10 MG SUPP.RECT RC PRN (11:54)
[2017-07-04] MEDS ORDERED: HYDROmorphone HCL CARPU-JECT 2 MG/1 ML DISP.SYRIN IVPUSH PRN (12:21)
[2017-07-04] MEDS: CYCLOBENZAPRINE HCL 10 MG TABLET (FP) PO SCH ×2 (13:12→21:46)
--- NOTE | 2017-07-04 15:27 | PATH ---
Surgical Pathology Report Patient Name: CAROLINA JANE Med. Rec. #: [id number] /Age/Gender: 1960 (Age: 57) / M Account: [id number] Location: [facility] MED/SURG Taken: 07/02/2017 Received: 07/03/2017 Reported: 07/04/2017 Physicians: Gurmeet Torres M.D. Specimen(s) Received COCCYX BONE Clinical History Pain in coccyx/intractable back pain Final Diagnosis COCCYX, BONE, COCCYGECTOMY AND ANOCOCCYGEAL LIGAMENT RECONSTRUCTION: FRAGMENTS OF BONE, CARTILAGE, AND DENSE FIBROCONNECTIVE TISSUE. Electronically Signed Jannette Barnett M.D. Gross Description Received in formalin labeled "coccyx bone," is a 4.8 x 3.8 x 1.2 cm aggregate of bone and fibrocartilaginous tissue fragments. Licensed Clinical Social Worker sections are submitted in one cassette, following decalcification. /07/03/2017 [facility]07/03/2017
[2017-07-04] MEDS: diazePAM 5 MG TABLET PO SCH (21:46)
[2017-07-04] MEDS: DOCUSATE SODIUM 100 MG CAPSULE (FP) PO SCH (21:46)
[2017-07-05] MEDS: morphine SULFATE 4 MG/ML VIAL IVPUSH PRN ×5 (02:27→20:48)
[2017-07-05] MEDS: CYCLOBENZAPRINE HCL 10 MG TABLET (FP) PO SCH ×3 (07:09→21:01)
[2017-07-05] MEDS: ASPIRIN COATED 81 MG TABLET.EC PO SCH ×2 (10:33→21:01)
[2017-07-05] MEDS: POLYETHYLENE GLYCOL 3350 119 GM BTL PO SCH ×2 (10:33→21:01)
[2017-07-05] MEDS: PANTOPRAZOLE 40 MG TABLET (FP) PO SCH (10:33)
--- NOTE | 2017-07-05 12:45 | PN ---
Progress Note (short form) - Note Progress Note: Subjective: The patient was seen at the bedside, he is standing as he reports difficulty with sitting because of pain. Patient required Morphine 6mg IVP overnight Current Medications Generic Name Dose Route Start Last Admin Trade Name Freq PRN Reason Stop Dose Admin Al Hydroxide/Mg Hydroxide 30 ml 07/02/17 17:49 Mylanta Oral Suspension - PO Q4H PRN DYSPEPSIA Aspirin 81 mg 07/03/17 13:45 07/05/17 10:33 Ecotrin - PO 81 mg BID LEAH Administration Bisacodyl 10 mg 07/04/17 11:54 Dulcolax Suppository - RC DAILY PRN CONSTIPATION Cyclobenzaprine HCl 10 mg 07/04/17 14:00 07/05/17 07:09 Flexeril - PO 10 mg TID LEAH Administration Diazepam 5 mg 07/02/17 22:00 07/04/17 21:46 Valium - PO 5 mg HS LEAH Administration Docusate Sodium 300 mg 07/02/17 22:00 07/04/17 21:46 Colace - PO 300 mg HS LEAH Administration Magnesium Hydroxide 30 ml 07/02/17 17:49 Milk Of Magnesia - PO PRN PRN CONSTIPATION Morphine Sulfate 6 mg 07/04/17 12:25 07/05/17 11:23 Morphine Sulfate IVPUSH 6 mg Q4H PRN Administration PAIN LEVEL 7 - 10 Oxycodone HCl 10 mg 07/03/17 13:20 07/04/17 10:25 Roxicodone - PO 10 mg Q4H PRN Administration PAIN LEVEL 4 - 6 Pantoprazole Sodium 40 mg 07/03/17 10:00 07/05/17 10:33 Protonix - PO 40 mg DAILY LEAH Administration Polyethylene Glycol 17 gm 07/02/17 22:00 07/05/17 10:33 Miralax (For Daily Use) - PO Not Given BID LEAH Promethazine HCl 12.5 mg 07/02/17 17:49 Phenergan Injection - IVPUSH Q6H PRN NAUSEA-FOR RESCUE AFTER 15 MIN Objective: Vital Signs Period Temp Pulse Resp BP Sys/Cortez Pulse Ox Last 24 Hr 97.6 F-98.3 F 80-104 18-18 130-159/77-93 97 Physical Exam: General: NAD, A&Ox3 Skin: Lower back dressing, intact CBCD WBC 9.4 K/mm3 (4.0-10.0) 07/04/17 06:20 RBC 5.55 M/mm3 (4.00-5.60) 07/04/17 06:20 Hgb 15.9 GM/dL (11.7-16.9) 07/04/17 06:20 Hct 47.7 % (35.4-49) 07/04/17 06:20 MCV 86.0 fl (80-96) 07/04/17 06:20 MCHC 33.3 g/dl (32.0-35.9) 07/04/17 06:20 RDW 13.8 % (11.9-15.9) 07/04/17 06:20 Plt Count 266 K/MM3 (134-434) 07/04/17 06:20 MPV 7.8 fl (7.5-11.1) 07/04/17 06:20 CMP Sodium 138 mmol/L (136-145) 07/03/17 06:20 Potassium 3.9 mmol/L (3.5-5.1) 07/03/17 06:20 Chloride 103 mmol/L (98-107) 07/03/17 06:20 Carbon Dioxide 24 mmol/L (21-32) 07/03/17 06:20 Anion Gap 11 (8-16) 07/03/17 06:20 BUN 14 mg/dL (7-18) 07/03/17 06:20 Creatinine 1.0 mg/dL (0.7-1.3) 07/03/17 06:20 Random Glucose 119 mg/dL (74-106) H 07/03/17 06:20 Calcium 8.7 mg/dL (8.5-10.1) 07/03/17 06:20 Assessment: This is a 56 year old male with PMHx of BPH, spinal fusion x4 most recent on 02/26/17, and coccydynia Plan: 1) Coccydynia - S/p coccygectomy and anococcygeal ligament reconstruction on 07/02/17 - Pain management continues to be an issue. Oxycodone 10mg and Morphine 6mg q4h - Bowel regimen: had BM x2 yesterday - F/u surgical consult for further recommendations for pain management 2) F/E/N: - Monitor electrolytes - Regular diet 3) Prophylaxis: - ASA 81mg po bid per ortho 4) Dispo: - Requires continued inpatient care CODE STATUS: FULL CODE Visit type - Emergency Visit Emergency Visit: Yes ED Registration Date: 07/01/17 Care time: The patient presented to the Emergency Department on the above date and was hospitalized for further evaluation of their emergent condition. - New Patient This patient is new to me today: Yes Date on this admission: 07/05/17 - Critical Care Critical Care patient: No
[2017-07-05] MEDS: diazePAM 5 MG TABLET PO SCH (21:00)
[2017-07-05] MEDS: DOCUSATE SODIUM 100 MG CAPSULE (FP) PO SCH (21:01)
[2017-07-06] MEDS: morphine SULFATE 4 MG/ML VIAL IVPUSH PRN ×3 (01:11→09:23)
[2017-07-06] MEDS: CYCLOBENZAPRINE HCL 10 MG TABLET (FP) PO SCH ×2 (05:56→15:00)
[2017-07-06] MEDS ORDERED: KETOROLAC TROMETHAMINE 15 MG/ML VIAL IVPUSH ONE (08:30)
[2017-07-06] MEDS: POLYETHYLENE GLYCOL 3350 119 GM BTL PO SCH (09:24)
[2017-07-06] MEDS: ASPIRIN COATED 81 MG TABLET.EC PO SCH (09:24)
[2017-07-06] MEDS: PANTOPRAZOLE 40 MG TABLET (FP) PO SCH (09:24)
[2017-07-06] MEDS ORDERED: oxyCODONE HCL 5 MG TABLET PO PRN (10:57)
[2017-07-06] MEDS ORDERED: oxyCODONE HCL 10 MG SUSTAINED ACTING TABLET PO SCH (11:00)
--- NOTE | 2017-07-06 11:24 | PN ---
Progress Note (short form) - Note Progress Note: Subjective: The patient was seen at the bedside, pain remains uncontrolled Spoke to Dr. Torres who recommends Toradol 15mg q6h (max 4 doses), Oxycontin 10mg po bid (3 days only), Oxycodone 10mg q6h prn. If pain still uncontrolled, can add Morphine sq Current Medications Generic Name Dose Route Start Last Admin Trade Name Freq PRN Reason Stop Dose Admin Al Hydroxide/Mg Hydroxide 30 ml 07/02/17 17:49 Mylanta Oral Suspension - PO Q4H PRN DYSPEPSIA Aspirin 81 mg 07/03/17 13:45 07/06/17 09:24 Ecotrin - PO 81 mg BID LEAH Administration Bisacodyl 10 mg 07/04/17 11:54 Dulcolax Suppository - RC DAILY PRN CONSTIPATION Cyclobenzaprine HCl 10 mg 07/04/17 14:00 07/06/17 05:56 Flexeril - PO 10 mg TID LEAH Administration Diazepam 5 mg 07/02/17 22:00 07/05/17 21:00 Valium - PO 5 mg HS LEAH Administration Docusate Sodium 300 mg 07/02/17 22:00 07/05/17 21:01 Colace - PO Not Given HS LEAH Gabapentin 300 mg 07/06/17 11:00 Neurontin - PO TID LEAH Ketorolac Tromethamine 15 mg 07/06/17 11:00 Toradol Injection - IVPUSH 07/07/17 05:01 Q6H LEAH Magnesium Hydroxide 30 ml 07/02/17 17:49 Milk Of Magnesia - PO PRN PRN CONSTIPATION Oxycodone HCl 10 mg 07/06/17 11:00 Oxycontin - PO BID LEAH Oxycodone HCl 10 mg 07/06/17 10:57 Roxicodone - PO Q6H PRN PAIN LEVEL 4 - 6 Pantoprazole Sodium 40 mg 07/03/17 10:00 07/06/17 09:24 Protonix - PO 40 mg DAILY LEAH Administration Polyethylene Glycol 17 gm 07/02/17 22:00 07/06/17 09:24 Miralax (For Daily Use) - PO Not Given BID LEAH Promethazine HCl 12.5 mg 07/02/17 17:49 Phenergan Injection - IVPUSH Q6H PRN NAUSEA-FOR RESCUE AFTER 15 MIN Objective: Vital Signs Period Temp Pulse Resp BP Sys/Cortez Pulse Ox Last 24 Hr 97.5 F-99.1 F 84-99 18-20 127-143/81-85 98 Physical Exam: General: NAD, A&Ox3 Skin: Lower back dressing, intact CBCD WBC 9.4 K/mm3 (4.0-10.0) 07/04/17 06:20 RBC 5.55 M/mm3 (4.00-5.60) 07/04/17 06:20 Hgb 15.9 GM/dL (11.7-16.9) 07/04/17 06:20 Hct 47.7 % (35.4-49) 07/04/17 06:20 MCV 86.0 fl (80-96) 07/04/17 06:20 MCHC 33.3 g/dl (32.0-35.9) 07/04/17 06:20 RDW 13.8 % (11.9-15.9) 07/04/17 06:20 Plt Count 266 K/MM3 (134-434) 07/04/17 06:20 MPV 7.8 fl (7.5-11.1) 07/04/17 06:20 CMP Sodium 138 mmol/L (136-145) 07/03/17 06:20 Potassium 3.9 mmol/L (3.5-5.1) 07/03/17 06:20 Chloride 103 mmol/L (98-107) 07/03/17 06:20 Carbon Dioxide 24 mmol/L (21-32) 07/03/17 06:20 Anion Gap 11 (8-16) 07/03/17 06:20 BUN 14 mg/dL (7-18) 07/03/17 06:20 Creatinine 1.0 mg/dL (0.7-1.3) 07/03/17 06:20 Random Glucose 119 mg/dL (74-106) H 07/03/17 06:20 Calcium 8.7 mg/dL (8.5-10.1) 07/03/17 06:20 Assessment: This is a 56 year old male with PMHx of BPH, spinal fusion x4 most recent on 02/26/17, and coccydynia Plan: 1) Coccydynia - S/p coccygectomy and anococcygeal ligament reconstruction on 4/23/18 - Pain management continues to be an issue. Discussed with Dr. Torres, regimen: - Toradol 15mg IVP q6h, max 4 doses - Oxycontin 10mg po bid x3 days - Oxycodone 10mg q6h prn - Gabapentin 300mg po tid - Bowel regimen - F/u surgical consult for further recommendations 2) F/E/N: - Monitor electrolytes - Regular diet 3) Prophylaxis: - ASA 81mg po bid per ortho 4) Dispo: - Requires continued inpatient care CODE STATUS: FULL CODE Visit type - Emergency Visit Emergency Visit: Yes ED Registration Date: 07/01/17 Care time: The patient presented to the Emergency Department on the above date and was hospitalized for further evaluation of their emergent condition. - New Patient This patient is new to me today: No - Critical Care Critical Care patient: No
[2017-07-06] MEDS: KETOROLAC TROMETHAMINE 15 MG/ML VIAL IVPUSH SCH ×2 (11:55→18:08)
[2017-07-06] MEDS: GABAPENTIN 300 MG CAPSULE (FP) PO SCH ×2 (11:55→15:00)
[2017-07-06 14:40] VITALS: TEMP 98.1
--- NOTE | 2017-07-06 17:26 | DS ---
Physical Examination Vital Signs: Vital Signs Temperature 98.1 F 07/06/17 14:39 Pulse Rate 92 H 07/06/17 14:39 Respiratory Rate 16 07/06/17 14:39 Blood Pressure 140/77 07/06/17 14:39 O2 Sat by Pulse Oximetry (%) 98 07/06/17 09:00 Labs: CBC, BMP 07/04/17 06:20 07/03/17 06:20 Discharge Summary Reason For Visit: PAIN IN THE COCCYX/INTRACTABLE BACK PAIN Current Active Problems Coccydynia (Acute) Intractable back pain (Acute) Hospital Course: Spoke to Dr. Torres who recommends discharge with Oxycodone, Oxycontin, Naproxen Condition: Improved - Instructions Diet, Activity, Other Instructions: Please return to the ED with new, persistent, or worsening symptoms. Please follow-up with providers as indicated. Pain management: Oxycontin 10mg twice a day Oxycodone 10mg every 6 hours prn Naproxen 250mg twice a day Referrals: Jonas Maurice MD [Primary Care Provider] - 1 Week Gurmeet Torres MD [Staff Physician] - (Please follow-up with Dr. Torres within 10 days for a post-op appointment.) Disposition: HOME - Home Medications Comprehensive Discharge Medication List: Ambulatory Orders Diazepam [Valium] 5 mg PO HS MDD 15mg 07/02/17 Aspirin Coated [Ecotrin -] 81 mg PO BID #100 tablet.ec 07/06/17 Cyclobenzaprine HCl [Flexeril -] 10 mg PO TID #90 tablet 07/06/17 Docusate Sodium [Colace -] 300 mg PO HS #90 capsule 07/06/17 Gabapentin [Neurontin -] 300 mg PO TID #90 capsule 07/06/17 Naproxen 250 mg PO BID PRN #10 tablet 07/06/17 Oxycodone HCl 10 mg PO Q6H PRN #12 tablet MDD 40mg 07/06/17 Polyethylene Glycol 3350 [Miralax 119 gm Btl -] 17 gm PO DAILY #1 bottle oxyCODONE SR [Oxycontin] 10 mg PO BID #6 tab.er.12h MDD 20mg 07/06/17 This patient is new to me today: Yes Date on this admission: 07/06/17 Emergency Visit: No Critical Care patient: No
[2017-07-06 19:26] VITALS: BP 157/93; PULSE 101
== END 2017-07-06 19:31 | disposition home or self-care (01) | DRG 310 ==
LOC: JER 19:39 → JERBED 23:12 → J8W 07-02 01:57
PROVIDERS: ADMIT Orthopaedic Surgery Orthopaedic Surgery of the Spine; ATTEND Registered Nurse
PROC: 0KQM0ZZ Repair Perineum Muscle, Open Approach (ICD-10-PCS; 2017-07-02)
PROC: 0MQ Bursae and Ligaments, Repair (ICD-10-PCS; 2017-07-02)
PROC: 0QTS0ZZ Resection of Coccyx, Open Approach (ICD-10-PCS; principal; 2017-07-02 15:30)
DX: M53.3 Sacrococcygeal disorders, not elsewhere classified (principal); N40.0 Benign prostatic hyperplasia without lower urinary tract symptoms
CPT/HCPCS: 36415; 71046-TC-FY; 80048; 85025; 85027; 85610; 85730; 88304-TC; 88311-TC; 93005; 93010; 94760; 97116-GP; 97161-GP; 99282-25; J0131; J7030